=== PATIENT | male | born 1985 | race African-American/Black ===

== ENCOUNTER 2016-05-28 07:58 | Emergency (ER) | payer BC ==
[~2016-05-28] VITALS: Ht 185.4 cm; Wt 192.8 kg
[2016-05-28] MEDS ORDERED: ONDANSETRON PF 4 MG/2 ML VIAL. IV ONE ×3 (08:15→10:00)
[2016-05-28] MEDS ORDERED: KETOROLAC TROMETHAMINE 30 MG/ML SYRINGE. IV ONE (08:15)
[2016-05-28] MEDS ORDERED: LIDO:MAALOX:DONNATAL 1:1:1 15 ML SINGLE DOSE SWSW ONE (08:15)
[2016-05-28] MEDS ORDERED: IV NORMAL SALINE 1000ML BAG 1,000 ML IV ONE (08:15)
[2016-05-28 08:27] LABS: BILIRUBIN,URINE NEGATIVE (NEG); GLUCOSE,URINE NEGATIVE (NEG); NITRITE,URINE NEGATIVE (NEG); PH,URINE 5.5; PROTEIN,URINE NEGATIVE (NEG-TRACE); UROBILINOGEN,URINE 0.2 mg/dL (0.2 mg/dL)
--- NOTE | 2016-05-28 08:34 | PHYS DOC ---
Adult General Chief Complaint Chief Complaint: ABDOMINAL PAIN HPI HPI Patient is a 31 year old male who presents with abdominal pain. Patient reports three-day history of epigastric and right upper quadrant abdominal pain which is worse with eating. Reports several episodes of vomiting yesterday, feels nauseated today but no vomiting. Reports loose stools throughout the night last night. Denies fevers or chills, hematemesis, hematochezia or melena, dysuria or hematuria. Denies previous history of similar symptoms, denies exposure to sick contacts. No known past medical history, denies alcohol use, denies history of abdominal surgeries. PCP is Dr. Lawrence. Review of Systems Review of Systems Constitutional: Denies fever or chills HENT: Denies nasal congestion or sore throat Respiratory: Denies cough or shortness of breath Cardiovascular: Denies chest pain or edema GI: Reports abdominal pain, nausea, vomiting, & diarrhea, denies bloody stools : Denies dysuria or hematuria Musculoskeletal: Denies back pain or joint pain Integument: Denies rash or skin lesions Neurologic: Denies headache, focal weakness or sensory changes Current Medications Current Medications Current Medications Medications (Trade) Dose Ordered Sig/Héctor Start Time Stop Time Status Last Admin Dose Admin Ketorolac Tromethamine (Toradol) 30 mg 1X ONCE 05/28/16 08:15 05/28/16 08:24 DC 05/28/16 08:47 30 MG Multi-Ingredient Mouthwash/Gargle (Gi Cocktail Single Dose) 15 ml 1X ONCE 05/28/16 08:15 05/28/16 08:24 DC 05/28/16 09:27 15 ML Ondansetron HCl (Zofran) 4 mg 1X ONCE 05/28/16 08:30 05/28/16 08:43 DC 05/28/16 08:46 4 MG Sodium Chloride (Iv Sodium Chloride 0.9% 1000ml Bag) 1,000 ml @ 1,000 mls/hr 1X ONCE 05/28/16 08:15 05/28/16 09:14 DC 05/28/16 08:45 1,000 MLS/HR Allergies Allergies Allergies Coded Allergies Type Severity Reaction Last Updated Verified No Known Drug Allergies 05/28/16 No Physical Exam Physical Exam Constitutional: Morbidly obese, no acute distress, non-toxic appearance. HENT: Normocephalic, atraumatic, bilateral external ears normal, oropharynx moist, nose normal. Eyes: conjunctiva normal, no discharge. Neck: supple, no stridor. Cardiovascular: RRR, no murmurs, no edema. Lungs & Thorax: LCTAB, no wheezing, no respiratory distress. Abdomen: Normal bowel sounds, soft, right upper quadrant tenderness and epigastric tenderness without rebound or guarding, no masses or pulsatile masses nondistended. Skin: Warm, dry, no erythema, no rash. Back: No tenderness, no CVA tenderness. Extremities: No tenderness, no edema. Neurologic: Alert and oriented X 3, no focal deficits noted. Psychologic: Affect normal, judgement normal, mood normal. Current Patient Data Vital Signs Vital Signs Date Time Temp Pulse Resp B/P Pulse Ox O2 Delivery O2 Flow Rate FiO2 05/28/16 08:10 98.1 85 18 148/78 98 Room Air 98.1 Lab Values Laboratory Tests Test 05/28/16 08:10 05/28/16 08:35 Urine Collection Type Unknown Urine Color Yellow Urine Clarity Clear Urine pH 5.5 Urine Specific [place] 1.025 Urine Protein Negativemg/dL (NEG-TRACE) Urine Glucose (UA) Negativemg/dL (NEG) Urine Ketones (Stick) Negativemg/dL (NEG) Urine Blood Moderate (NEG) Urine Nitrite Negative (NEG) Urine Bilirubin Negative (NEG) Urine Urobilinogen Dipstick 0.2mg/dL (0.2 mg/dL) Urine Leukocyte Esterase Negative (NEG) Urine RBC 0/HPF (0-2) Urine WBC 0/HPF (0-4) Urine Bacteria 0/HPF (0-FEW) White Blood Count 6.9x10^3/uL (4.0-11.0) Red Blood Count 4.67x10^6/uL (4.30-5.70) Hemoglobin 14.3g/dL (13.0-17.5) Hematocrit 43.3% (39.0-53.0) Mean Corpuscular Volume 93fL (79-100) Mean Corpuscular Hemoglobin 31pg (25-35) Mean Corpuscular Hemoglobin Concent 33g/dL (31-37) Red Cell Distribution Width 13.2% (11.5-14.5) Platelet Count 213x10^3/uL (140-400) Neutrophils (%) (Auto) 74% (31-73) H Lymphocytes (%) (Auto) 14% (24-48) L Monocytes (%) (Auto) 8% (0-9) Eosinophils (%) (Auto) 3% (0-3) Basophils (%) (Auto) 0% (0-3) Neutrophils # (Auto) 5.1x10^3uL (1.8-7.7) Lymphocytes # (Auto) 1.0x10^3/uL (1.0-4.8) Monocytes # (Auto) 0.6x10^3/uL (0.0-1.1) Eosinophils # (Auto) 0.2x10^3/uL (0.0-0.7) Basophils # (Auto) 0.0x10^3/uL (0.0-0.2) Sodium Level 144mmol/L (136-145) Potassium Level 4.0mmol/L (3.5-5.1) Chloride Level 107mmol/L (98-107) Carbon Dioxide Level 30mmol/L (21-32) Anion Gap 7 (6-14) Blood Urea Nitrogen 13mg/dL (8-26) Creatinine 1.1mg/dL (0.7-1.3) Estimated GFR (Cockcroft-Gault) 77.6 BUN/Creatinine Ratio 12 (6-20) Glucose Level 111mg/dL (70-99) H Calcium Level 9.1mg/dL (8.5-10.1) Total Bilirubin 0.8mg/dL (0.2-1.0) Aspartate Amino Transferase (AST) 28U/L (15-37) Alanine Aminotransferase (ALT) 62U/L (16-63) Alkaline Phosphatase 82U/L (46-116) Total Protein 7.1g/dL (6.4-8.2) Albumin 3.7g/dL (3.4-5.0) Albumin/Globulin Ratio 1.1 (1.0-1.7) Lipase 115U/L (73-393) Laboratory Tests 05/28/16 08:35 Laboratory Tests 05/28/16 08:35 EKG EKG [] Radiology/Procedures Radiology/Procedures PROCEDURE: ABDOMEN LTD Right upper quadrant abdominal ultrasound, 05/28/2016: History: Right upper quadrant pain The gallbladder is within normal limits in size. There is no sonographic evidence of cholelithiasis. The gallbladder lowery are not thickened. No bile duct dilatation is seen. The visualized portions of the liver, pancreas and right kidney are unremarkable. IMPRESSION: No significant abnormality is detected. DICTATED and SIGNED BY: SAL TRUJILLO MD DATE: 05/28/16 0911[] Course & Med Decision Making Course & Med Decision Making Pertinent Labs and Imaging studies reviewed. (See chart for details) Patient presents with abdominal pain, vomiting, diarrhea. Well-appearing, stable vitals here. Labs show no acute abnormality, right upper quadrant ultrasound unremarkable. Able to tolerate oral intake. Feeling better after receiving IV fluids, Zofran, GI cocktail. Recommend rest, by mouth hydration, Zofran for nausea, antacid, follow up as needed with Dr. Lawrence in primary care clinic if not improving in 2-3 days. Return to the emergency department for high fever, severe pain, uncontrolled vomiting, bloody stools, any otherwise worsening condition. Discharged home in stable and improved condition. [] Dragon Disclaimer Dragon Disclaimer This electronic medical record was generated, in whole or in part, using a voice recognition dictation system. Departure Departure Impression: Primary Impression: Vomiting and diarrhea Additional Impression: Abdominal pain Referrals: DARCIE LAWRENCE MD (PCP) Patient Instructions: Diarrhea, Pfrw-wp-Rnii, Gastritis, Adult, Djrx-yn-Skon, Nausea and Vomiting, Mnio-fg-Erel Additional Instructions: You seen in the emergency department today for abdominal pain. Tests here did not show a serious cause of symptoms. This could because by a virus. Please rest , drink clear liquids to stay hydrated, take Zofran for nausea and antacid as needed, follow up as needed with Dr. Lawrence in primary care clinic if not improving in 2-3 days. Return to the emergency department for high fever, severe pain, uncontrolled vomiting, bloody stools, any otherwise worsening condition. Scripts Ranitidine Hcl (Zantac)150 Mg [id number] Mg PO DAILY #15 TAB Prov:ESTEBAN GE MD 05/28/16 Ondansetron (Zofran Odt)4 Mg Tab.rapdis1 Tab SL Q8HRS PRN NAUSEA #10 TAB Prov:ESTEBAN GE MD 05/28/16 Problem Qualifiers ESTEBAN GE MD May 28, 2016 08:34
[2016-05-28 08:38] LABS: BACTERIA,URINE 0 /HPF (0-FEW); RBC,URINE 0 /HPF (0-2); WBC,URINE 0 /HPF (0-4)
[2016-05-28 08:46] LABS: BASO % 0 % (0-3); EOS % 3 % (0-3); HEMATOCRIT 43.3 % (39.0-53.0); HEMOGLOBIN 14.3 g/dL (13.0-17.5); LYMPH % 14 % (24-48); MEAN CORPUSCULAR HEMOGLOBIN 31 pg (25-35); MEAN CORPUSCULAR HGB CONC 33 g/dL (31-37); MEAN CORPUSCULAR VOLUME 93 fL (79-100); MONO % 8 % (0-9); NEUT % 74 % (31-73); PLATELET COUNT 213 x10^3/uL (140-400); RED BLOOD COUNT 4.67 x10^6/uL (4.30-5.70); RED CELL DISTRIBUTION WIDTH 13.2 % (11.5-14.5); WHITE BLOOD COUNT 6.9 x10^3/uL (4.0-11.0)
[2016-05-28 08:58] LABS: CALCIUM 9.1 mg/dL (8.5-10.1); CREATININE 1.1 mg/dL (0.7-1.3); GFR 77.6
[2016-05-28 09:10] LABS: ALBUMIN 3.7 g/dL (3.4-5.0); ALBUMIN/GLOBULIN RATIO 1.1 (1.0-1.7); TOTAL BILIRUBIN 0.8 mg/dL (0.2-1.0); TOTAL PROTEIN 7.1 g/dL (6.4-8.2)
--- NOTE | 2016-05-28 09:15 | RAD ---
Right upper quadrant abdominal ultrasound, 05/28/2016: History: Right upper quadrant pain The gallbladder is within normal limits in size. There is no sonographic evidence of cholelithiasis. The gallbladder lowery are not thickened. No bile duct dilatation is seen. The visualized portions of the liver, pancreas and right kidney are unremarkable. IMPRESSION: No significant abnormality is detected.
[2016-05-28] MEDS ORDERED: ONDA4TAB10 SL (09:41)
[2016-05-28] MEDS ORDERED: RANI150T6 PO (09:41)
[2016-05-28 09:52] VITALS: BP 122/70
[2016-05-28] MEDS ORDERED: FENTANYL PF 100 MCG/2 ML VIAL. IV ONE ×2 (10:00)
== END 2016-05-28 09:59 | disposition home or self-care (01) ==
LOC: ER 07:58
DX: R10.13 Epigastric pain (principal); R19.7 Diarrhea, unspecified; R11.2 Nausea with vomiting, unspecified; R10.11 Right upper quadrant pain
CPT/HCPCS: 36415; 76705; 80053; 81001; 83690; 85027; 96361; 96374; 96375; 99285; J1885; J2405; J7030

== ENCOUNTER 2016-06-19 10:14 | Emergency (ER) | payer BC ==
[~2016-06-19 10:14] MED LIST: ONDA4TAB10 SL; RANI150T6 PO
[2016-06-19 10:19] VITALS: BP 167/88
[2016-06-19] MEDS ORDERED: AMOX500C PO (10:43)
[2016-06-19] MEDS ORDERED: PRED50TA PO (10:43)
--- NOTE | 2016-06-19 10:43 | PHYS DOC ---
Past Medical History Past Medical History: Hypertension Past Surgical History: No Surgical History Alcohol Use: Occasionally Drug Use: None Adult General Chief Complaint Chief Complaint: SORE THROAT HPI HPI 31-year-old male presenting to the emergency department today with a sore throat for greater than a week. He has a pain in the back of his throat that is throbbing pain that is worse with swallowing and without associated fever. He denies a cough. Onset greater than a week. Location throat. Duration constant. No alleviating factors present. Review of systems is negative for chest pain shortness of breath. He denies drooling or dyspnea or stridor. He denies tongue elevation. All other review of systems is negative unless otherwise noted in history of present illness. Review of Systems Review of Systems SEE ABOVE. Allergies Allergies Allergies Coded Allergies Type Severity Reaction Last Updated Verified No Known Drug Allergies 05/28/16 No Physical Exam Physical Exam Constitutional: Well developed, well nourished, no acute distress, non-toxic appearance. HENT: Normocephalic, atraumatic, bilateral external ears normal, oropharynx moist, no evidence of peritonsillar abscess. No swelling of the posterior pharynx. Normal range of motion of the neck. Uvula is midline. Erythema of the posterior pharynx and tonsils., nose normal. Eyes: PERRLA, EOMI, conjunctiva normal, no discharge. [] Neck: Normal range of motion, no tenderness, supple, no stridor. Cardiovascular:Heart rate regular rhythm, no murmur Lungs & Thorax: Bilateral breath sounds clear to auscultation Abdomen: Bowel sounds normal, soft, no tenderness, no masses, no pulsatile masses. Skin: Warm, dry, no erythema, no rash. Back: No tenderness, no CVA tenderness. [] Extremities: No tenderness, no cyanosis, no clubbing, ROM intact, no edema. Neurologic: Alert and oriented X 3, normal motor function, normal sensory function, no focal deficits noted. Psychologic: Affect normal, judgement normal, mood normal. [] Current Patient Data Vital Signs Vital Signs Date Time Temp Pulse Resp B/P Pulse Ox O2 Delivery O2 Flow Rate FiO2 06/19/16 10:19 98.6 101 20 99 Room Air 98.6 EKG EKG [] Radiology/Procedures Radiology/Procedures [] Course & Med Decision Making Course & Med Decision Making Pertinent Labs and Imaging studies reviewed. (See chart for details) [] 31-year-old gentleman presenting with sore throat found to be strep positive. Patient given amoxicillin and corticosteroids. I recommend acetaminophen and ibuprofen for pain control. Smhq-uy-pdid discharge instructions and return precautions given. Patient comfortable with plan. Dragon Disclaimer Dragon Disclaimer This electronic medical record was generated, in whole or in part, using a voice recognition dictation system. Departure Departure Impression: Primary Impression: Strep throat Disposition: HOME, SELF-CARE Condition: STABLE Referrals: DARCIE LAWRENCE MD (PCP) Patient Instructions: Strep Throat Additional Instructions: Thank you for allowing us to participate in your care today. Followup with your primary care physician in 3 days if your symptoms do not improve. If you do not have a primary care provider you can ask for a list of our primary care providers. Return to the emergency department you have any new or concerning findings. This should be evaluated by the primary care physician and any necessary consulting services for continued management within a few days after discharge. Return to emergency room if you have any new or concerning symptoms including but not limited to fever, chills, nausea, vomiting, intractable pain, any new rashes, chest pain, shortness of air, uncontrolled bleeding, difficulty breathing, and/or vision loss. Scripts Prednisone 50 Mg Tablet1 Tab PO DAILY #5 TAB Prov:MAURICIO LAZCANO MD 06/19/16 Amoxicillin 500 Mg Capsule1 Cap PO BID #20 CAP Prov:MAURICIO LAZCANO MD 06/19/16 MAURICIO LAZCANO MD Jun 19, 2016 10:43
[2016-06-19 13:36] LABS: NEGATIVE OBC STREP NEG; POSITIVE OBC STREP POS
== END 2016-06-19 10:55 | disposition home or self-care (01) ==
LOC: ER 10:14
DX: J02.0 Streptococcal pharyngitis (principal); I10 Essential (primary) hypertension
CPT/HCPCS: 87880; 99283

== ENCOUNTER 2017-01-26 06:57 | Emergency (ER) | payer BC ==
[~2017-01-26] VITALS: Ht 180.3 cm; Wt 145.1 kg
[~2017-01-26 06:57] MED LIST changes: +AMOX500C PO; +PRED50TA PO
[2017-01-26 07:05] VITALS: BP 143/93
--- NOTE | 2017-01-26 07:37 | PHYS DOC ---
Past Medical History Past Medical History: Hypertension Past Surgical History: No Surgical History Alcohol Use: Occasionally Drug Use: None Adult General Chief Complaint Chief Complaint: FOOT INJURY PAIN HPI HPI Patient is a 32 year old male with history of hypertension and overweight who presents today complaining of moderate right ankle and foot pain that began 3 days ago. Patient denies any known injury. He states his pain is constant worse on weight bearing. He states he stands on his feet for hours and this exacerbates his pain. Review of Systems Review of Systems Constitutional: Denies fever or chills [] Musculoskeletal: Right ankle and knee pain Integument: Denies rash or skin lesions [] Neurologic: Denies headache, focal weakness or sensory changes [] All other systems were reviewed and found to be within normal limits, except as documented in this note. Allergies Allergies Allergies Coded Allergies Type Severity Reaction Last Updated Verified No Known Drug Allergies 05/28/16 No Physical Exam Physical Exam Constitutional: Well developed, well nourished, no acute distress, non-toxic appearance. [] Skin: Warm, dry, no erythema, no rash. [] Back: No tenderness, no CVA tenderness. [] Extremities: Overweight patient with a BMI of 44.6. No obvious deformity noted on bilateral lower extremities. +1 bilateral lower extremity swelling probably chronic. No tenderness on exam of the right ankle right foot. Feet appear dry with Callous on the plantar aspect of the fee.Normal range of motion to bilateral feet and ankle. +2 bilateral pedal pulses. Cap Refill less than 2 seconds bilateral lower extremities. Neurologic: Alert and oriented X 3, normal motor function, normal sensory function, no focal deficits noted. [] Psychologic: Affect normal, judgement normal, mood normal. [] Current Patient Data Vital Signs Vital Signs Date Time Temp Pulse Resp B/P (MAP) Pulse Ox O2 Delivery O2 Flow Rate FiO2 01/26/17 07:05 97.9 81 18 143/93 (110) 99 Room Air 97.9 EKG EKG [] Radiology/Procedures Radiology/Procedures []PROCEDURE: ANKLE RIGHT 3V; FOOT RIGHT 3V Right foot, 3 views, 01/26/2017: History: Foot and ankle pain and swelling No fracture or dislocation is identified. No destructive bony lesion is seen. There is moderate generalized subcutaneous edema about the foot. Right ankle, 3 views, 01/26/2017: No fracture or dislocation is identified. There is diffuse soft tissue swelling about the ankle. IMPRESSION: No acute bony abnormality is detected. DICTATED and SIGNED BY: SAL TRUJILLO MD DATE: 01/26/17 0756 CC: DARCIE LAWRENCE MD; VICTOR HUGO BRUNO APRN ~ Course & Med Decision Making Course & Med Decision Making Pertinent Labs and Imaging studies reviewed. (See chart for details) Patient is in the ED with right ankle and right foot pain with no known injury for 3 days. Right ankle and foot x-rays interpreted by radiologist are negative for any acute findings. Patient is requesting a note for work which was provided. Patient was discharged with diclofenac cream instructed to ice and elevate the extremities. Weight loss will benefit this patient. Provided orthopedic doctor for follow-up. Dragon Disclaimer Dragon Disclaimer This electronic medical record was generated, in whole or in part, using a voice recognition dictation system. Departure Departure Impression: Primary Impression: Right foot pain Additional Impressions: Right ankle pain Lower extremity edema Disposition: 01 HOME, SELF-CARE Condition: STABLE Referrals: DARCIE LAWRENCE MD (PCP) ILIA DAVILA MD follow up in one week Patient Instructions: Ankle Pain, Edema Additional Instructions: You were seen with right ankle and foot pain. Your right ankle and foot x-rays were negative for any acute findings. Ice and elevate the extremities. Continue taking pzni-qle-ptqhrgm pain relievers. Use the prescribed cream as ordered. Follow-up with the provided orthopedic doctor in one week if pain continues. Scripts Diclofenac Sodium (VOLTAREN) 100 Gm Gel..gram. 1 GM TP QID, #100 GM 2 Refills Prov: VICTOR HUGO BRUNO APRN 01/26/17 Problem Qualifiers Additional Impressions: Right ankle pain Chronicity: acute Qualified Codes: M25.571 - Pain in right ankle and joints of right foot VICTOR HUGO BRNUO APRN Jan 26, 2017 07:37
--- NOTE | 2017-01-26 08:03 | RAD ---
Right foot, 3 views, 01/26/2017: History: Foot and ankle pain and swelling No fracture or dislocation is identified. No destructive bony lesion is seen. There is moderate generalized subcutaneous edema about the foot. Right ankle, 3 views, 01/26/2017: No fracture or dislocation is identified. There is diffuse soft tissue swelling about the ankle. IMPRESSION: No acute bony abnormality is detected.
[2017-01-26] MEDS ORDERED: DICL100G18 TP (08:30)
== END 2017-01-26 08:44 | disposition home or self-care (01) ==
LOC: ER 06:57
DX: M25.571 Pain in right ankle and joints of right foot (principal); M79.671 Pain in right foot; R60.0 Localized edema; I10 Essential (primary) hypertension
CPT/HCPCS: 73610; 73630; 99284

== ENCOUNTER 2017-01-28 20:34 | Emergency (ER) | payer BC ==
[~2017-01-28 20:34] MED LIST changes: +DICL100G18 TP
== END 2017-01-28 20:59 | disposition left against medical advice (07) ==
LOC: ER 20:34
DX: M79.673 Pain in unspecified foot (principal); Z53.21 Procedure and treatment not carried out due to patient leaving prior to being seen by health care provider

== ENCOUNTER → 2017-02-11 | Outpatient (CLI) | payer BC ==
[2017-01-26 07:05] VITALS: BP 143/93
--- NOTE | 2017-02-11 13:21 | CARD ---
APPROVED REPORT EXAM: Two-dimensional and M-mode echocardiogram with Doppler and color Doppler. Other Information Quality : Good INDICATION Murmur DX SYSTOLIC EJECTION MURMUR 2D DIMENSIONS Left Atrium(2D)4.1 (1.6-4.0cm)IVSd1.4 (0.7-1.1cm) Aortic Root(2D)3.1 (2.0-3.7cm)LVDd5.3 (3.9-5.9cm) LVOT Diameter2.0 (1.8-2.4cm)PWd1.4 (0.7-1.1cm) LVDs3.1 (2.5-4.0cm)FS (%) 41.9 % SV96.2 mlLVEF(%)72.5 (>50%) Aortic Valve AoV Peak Matthew.135.1cm/sAoV VTI25.6cm AO Peak GR.7.3mmHgLVOT Peak Matthew.135.3cm/s AO Mean GR.4mmHgAVA (VMAX)3.24cm2 KARL (VTI)3.50cm2 Mitral Valve MV E Umyhunkl01.2cm/sMV DECEL HPCR306dy MV A Aosnuszs38.3cm/sE/A Ratio1.3 Tricuspid Valve TR P. Zzlxjrcb100au/sRAP VGXCMARW6mfHl TR Peak Gr.24arKpTMMQ91wcOh LEFT VENTRICLE The left ventricle is normal size. There is mild concentric left ventricular hypertrophy. Left ventri mora systolic function is normal. The Ejection Fraction is 55-60%. There is normal LV segmental wall m otion. The left ventricular diastolic function and filling is normal for age. RIGHT VENTRICLE The right ventricle is normal size. The right ventricular systolic function is normal. ATRIA The left atrium size is normal. The right atrium size is normal. The interatrial septum is intact wit h no evidence for an atrial septal defect or patent foramen ovale as noted on 2-D or Doppler imaging. AORTIC VALVE The aortic valve is grossly normal in structure and function. Doppler and Color Flow revealed no sign ificant aortic regurgitation. There is no significant aortic valvular stenosis. MITRAL VALVE The mitral valve is normal in structure and function. There is no evidence of mitral valve prolapse. There is no mitral valve stenosis. Doppler and Color Flow revealed no mitral valve regurgitation note d. TRICUSPID VALVE The tricuspid valve is normal in structure and function. Doppler and Color Flow revealed trace tricus pid regurgitation. There is no pulmonary hypertension. The PA pressure was estimated at 15 mmHg. Ther e is no tricuspid valve prolapse or vegetation. There is no tricuspid valve stenosis. PULMONIC VALVE Doppler and Color Flow revealed no pulmonic valvular regurgitation. There is no pulmonic valvular carter nosis. GREAT VESSELS The aortic root is normal in size. The ascending aorta is normal in size. The IVC is normal in size a nd collapses >50% with inspiration. PERICARDIAL EFFUSION There is no pleural effusion. There is no evidence of significant pericardial effusion. Critical Notification Critical Value: No <Conclusion> There is mild concentric left ventricular hypertrophy. Left ventricle systolic function is normal. The Ejection Fraction is 55-60%. There is normal LV segmental wall motion. No significant valvular disease.
== END | disposition home or self-care (01) ==
LOC: ECHO 07:48
PROVIDERS: ATTEND Internal Medicine Cardiovascular Disease
DX: I51.7 Cardiomegaly (principal); R01.1 Cardiac murmur, unspecified
CPT/HCPCS: 93306

== ENCOUNTER 2017-04-02 14:11 | Emergency (ER) | payer BC | END 2017-04-02 16:18 | disposition home or self-care (01) | LOC: ER 14:11 | DX: M94.0 Chondrocostal junction syndrome [Tietze] (principal); R19.7 Diarrhea, unspecified; R51 Headache; E66.9 Obesity, unspecified; I10 Essential (primary) hypertension; F17.200 Nicotine dependence, unspecified, uncomplicated; Z68.43 Body mass index [BMI] 50.0-59.9, adult | CPT/HCPCS: 71046; 93005; 99284-25 ==

== ENCOUNTER → 2017-08-11 | Outpatient (CLI) | payer BC | END | disposition home or self-care (01) | LOC: US 12:53 | DX: R60.0 Localized edema (principal) | CPT/HCPCS: 93971 ==

== ENCOUNTER 2019-01-06 00:09 | Emergency (ER) | payer BC ==
[~2019-01-06] VITALS: Ht 180.3 cm; Wt 176.9 kg
[~2019-01-06 00:09] MED LIST changes: +NABU750T PO; +RANI-376 PO; -RANI150T6 PO
[2019-01-06] MEDS ORDERED: NYST100054 PO (00:16)
--- NOTE | 2019-01-06 00:16 | PHYS DOC ---
Past Medical History Past Medical History: Hypertension (SHYAM JACK APRN) Past Surgical History: No Surgical History (SHYAM JACK APRN) Alcohol Use: Occasionally Drug Use: None (SHYAM JACK APRN) Attending Signature I have participated in the care of this patient and I have reviewed and agree with all pertinent clinical information above including history, exam, and recommendations. (JAIR THORPE MD) Adult General Chief Complaint Chief Complaint: TONGUE SWELLING/INJURY HPI HPI Patient is a 33 year old male who presents with states he's been on Bactrim antibiotic for a abscess infection. Patient states he's now noticed white p atches on his tongue and his tongue is sore and redness of his inner lips and in the mucosa of his mouth that are sore. (SHYAM JACK APRN) Review of Systems Review of Systems Constitutional: Denies fever or chills [] Eyes: Denies change in visual acuity, redness, or eye pain [] HENT: Denies nasal congestion or sore throat [] Respiratory: Denies cough or shortness of breath [] Cardiovascular: No additional information not addressed in HPI [] GI: Denies abdominal pain, nausea, vomiting, bloody stools or diarrhea [] : Denies dysuria or hematuria [] Musculoskeletal: Denies back pain or joint pain [] Integument: Denies rash or skin lesions [] Neurologic: Denies headache, focal weakness or sensory changes [] Endocrine: Denies polyuria or polydipsia [] All other systems were reviewed and found to be within normal limits, except as documented in this note. (SHYAM JACK APRN) Allergies Allergies Allergies Coded Allergies Type Severity Reaction Last Updated Verified No Known Drug Allergies 05/28/16 No (JAIR THORPE MD) Physical Exam Physical Exam Constitutional: Well developed, well nourished, no acute distress, non-toxic appearance. [] HENT: Normocephalic, atraumatic, bilateral external ears normal, oropharynx moist, no oral exudates, nose normal. [] Eyes: PERRLA, EOMI, conjunctiva normal, no discharge. [] Neck: Normal range of motion, no tenderness, supple, no stridor. [] Cardiovascular:Heart rate regular rhythm, no murmur [] Lungs & Thorax: Bilateral breath sounds clear to auscultation [] Abdomen: Bowel sounds normal, soft, no tenderness, no masses, no pulsatile masses. [] Skin: Warm, dry, no erythema, no rash. [] Back: No tenderness, no CVA tenderness. [] Extremities: No tenderness, no cyanosis, no clubbing, ROM intact, no edema. [] Neurologic: Alert and oriented X 3, normal motor function, normal sensory function, no focal deficits noted. [] Psychologic: Affect normal, judgement normal, mood normal. [] (SHYAM JACK APRN) Current Patient Data Vital Signs Vital Signs Date Time Temp Pulse Resp B/P (MAP) Pulse Ox O2 Delivery O2 Flow Rate FiO2 01/06/19 00:18 98.2 95 20 147/103 (118) 99 Room Air 98.2 (JAIR THORPE MD) EKG EKG [] (SHYAM JACK APRN) Radiology/Procedures Radiology/Procedures [] (SHYAM JACK APRN) Course & Med Decision Making Course & Med Decision Making Patient has white patches on his tongue and white patches to the inner mucosa of his mouth on his cheeks and then her bottom lip with redness. Patient states these areas are also sore. Patient noticed this after he is taking the Bactrim antibiotic. This is likely oral yeast. Patient is told to follow-up with his primary care doctor. Patient is given Oral nystatin. [] (SHYAM JACK APRN) Dragon Disclaimer Dragon Disclaimer This electronic medical record was generated, in whole or in part, using a voice recognition dictation system. (SHYAM JACK APRN) Departure Departure Impression: Primary Impression: Thrush, oral Disposition: HOME, SELF-CARE Condition: STABLE Referrals: Marly DEVINE MD (PCP) Patient Instructions: Thrush, Adult Additional Instructions: Follow up with primary care provider. Swish the medication around in your mouth for as long as possible and then swallow. Use medication as directed. Scripts Nystatin (NYSTATIN) 100,000 Unit/1 Ml Oral.susp 5 ML PO QID for 10 Days, #200 ML Prov: SHYAM JACK APRN 01/06/19 SHYAM JACK APRN Jan 06, 2019 00:16 JAIR THORPE MD Jan 06, 2019 05:31
[2019-01-06 00:18] VITALS: BP 147/103
== END 2019-01-06 00:34 | disposition home or self-care (01) ==
LOC: ER 00:09
DX: B37.0 Candidal stomatitis (principal); I10 Essential (primary) hypertension
CPT/HCPCS: 99283

== ENCOUNTER 2019-01-07 20:10 | Emergency (ER) | payer BC ==
[~2019-01-07] VITALS: Ht 188 cm; Wt 176.9 kg
[~2019-01-07 20:10] MED LIST changes: +NYST100054 PO
[2019-01-07 21:00] VITALS: BP 147/89
--- NOTE | 2019-01-07 21:01 | PHYS DOC ---
Past Medical History Past Medical History: Hypertension Additional Past Medical Histor: CYSTITIS Past Surgical History: No Surgical History Alcohol Use: Occasionally Drug Use: None Adult General Chief Complaint Chief Complaint: SEXUALLY TRANSMITTED DISEASE HPI HPI Patient is a 33 year old -Martiniquais male, who presents to the emergency Department with concerns of sexually transmitted infection. Patient states he was seen here yesterday and diagnosed with thrush of his mouth. Today he noticed a small sore located at 12:00 on the head of his penis. He denies any pain or discharge from the sore. He just noticed that the area appeared a little red and he was worried that he may have contracted a sexually transmitted infection. Patient denies any abdominal pain, pelvic pain, dysuria, hematuria, irregular penile discharge, low back pain, dysuria, or increased urinary frequency. She currently denies any pain. He states that he has been taking the medication as prescribed for his oral thrush. All other ROS is neg unless otherwise noted in HPI. Review of Systems Review of Systems See Above Allergies Allergies Allergies Coded Allergies Type Severity Reaction Last Updated Verified No Known Drug Allergies 05/28/16 No Physical Exam Physical Exam See Above Constitutional: Well developed, well nourished, no acute distress, non-toxic appearance, obese [] HENT: Normocephalic, atraumatic, bilateral external ears normal, oropharynx moist, thick white coating to tongue consistent with oral thrush noted, nose normal. [] Eyes: PERRLA, EOMI, conjunctiva normal, no discharge. [] Neck: Normal range of motion, no stridor. [] Cardiovascular:Heart rate regular rhythm Lungs & Thorax: Respirations even and unlabored, no retractions, no respiratory distress : Less than 2 mm area of irritation noted to the head of penis located at 12:00, does not appear to be a ulceration, most likely an abrasion, no surrounding erythema, no drainage Alexis RN was at beside to supervisor gate services genital exam Skin: Warm, dry, no erythema Neurologic: Alert and oriented X 3, no focal deficits noted. [] Psychologic: Affect normal, judgement normal, mood normal. [] Current Patient Data Vital Signs Vital Signs Date Time Temp Pulse Resp B/P (MAP) Pulse Ox O2 Delivery O2 Flow Rate FiO2 01/07/19 21:00 97.0 88 20 147/89 (108) 95 Room Air 97.0 EKG EKG [] Radiology/Procedures Radiology/Procedures [] Course & Med Decision Making Course & Med Decision Making Pertinent Labs and Imaging studies reviewed. (See chart for details) dx: Penile abrasion, oral thrush Patient is a 33-year-old -Martiniquais male who presented to the emergency room with concerns of having genital herpes after recent diagnosis of oral thrush. Patient states he was here yesterday and diagnosed with oral thrush. Patient states today he noticed that there was a small red area noted to the tip of his penis. Patient denied any pain or discharge at the site. However, he reports concern that maybe he has a sexually transmitted infection. Patient denied any symptoms concerning for sexually transmitted infection. Advised patient that we do not test for herpes in the emergency department and recomme nded that patient follow up with his primary care doctor or the local health department for comprehensive sexually transmitted infection testing. Encourage the patient to continue taking the oral nystatin as prescribed and to follow-up with Dr. Devine for further evaluation. Patient verbalized an understanding of home care, medications, follow-up, and return to ED instructions and was in agreement with the plan of care.[] Dragon Disclaimer Dragon Disclaimer This electronic medical record was generated, in whole or in part, using a voice recognition dictation system. Departure Departure Impression: Primary Impression: Penile abrasion Additional Impression: Thrush, oral Disposition: 01 HOME, SELF-CARE Condition: STABLE Referrals: Marly DEVINE MD (PCP) Patient Instructions: Abrasions, Thrush, Adult, [id number] Additional Instructions: Continue taking the medication as prescribed for treatment of your oral thrush. Follow-up with Dr. Devine for further more comprehensive sexually transmitted disease testing. Return to the ER if your symptoms worsen. Problem Qualifiers Primary Impression: Penile abrasion Encounter type: initial encounter Qualified Codes: S30.812A - Abrasion of penis, initial encounter ERLINDA VILLARREAL PROFESSOR OF [employer] Jan 07, 2019 21:01
== END 2019-01-07 21:10 | disposition home or self-care (01) ==
LOC: ER 20:10
DX: S30.812A Abrasion of penis, initial encounter (principal); B37.0 Candidal stomatitis; I10 Essential (primary) hypertension; Z72.89 Other problems related to lifestyle; X58.XXXA Exposure to other specified factors, initial encounter; Y93.89 Activity, other specified; Y92.89 Other specified places as the place of occurrence of the external cause; Y99.8 Other external cause status
CPT/HCPCS: 99281

== ENCOUNTER 2020-02-13 12:02 | Emergency (ER) | payer BC ==
[~2020-02-13] VITALS: Ht 182.9 cm; Wt 179.0 kg
[~2020-02-13 12:02] MED LIST changes: -DICL100G18 TP; +DICL100G54 TP; -NABU750T PO; +NABU750T7 PO
[2020-02-13] MEDS ORDERED: FAMOTIDINE 20 MG/2 ML VIAL IVP ONE (14:00)
[2020-02-13] MEDS ORDERED: IV NORMAL SALINE 1000ML BAG 1,000 ML IV ONE (14:00)
--- NOTE | 2020-02-13 14:37 | RAD ---
EXAM: Abdomen sonogram. HISTORY: Pain. TECHNIQUE: Sonographic imaging of the abdomen was performed. COMPARISON: None. FINDINGS: The liver is enlarged. There is hepatic steatosis. The gallbladder is contracted due to the postprandial status the patient. There is no convincing cholecystitis. The right kidney, pancreas, a citlali and inferior vena cava are unremarkable. The distal aorta is obscured due to body habitus. IMPRESSION: 1. Hepatomegaly and hepatic steatosis. 2. Contracted postprandial gallbladder, limiting evaluation. Electronically signed by: Princess Casiano MD (02/13/2020 2:35 PM) [id number]
[2020-02-13 15:33] LABS: BASO % 0 % (0-3); EOS # 0.1 x10^3/uL (0.0-0.7); EOS % 1 % (0-3); HEMOGLOBIN 14.8 g/dL (13.0-17.5); LYMPH # 1.9 x10^3/uL (1.0-4.8); LYMPH % 28 % (24-48); MEAN CORPUSCULAR HEMOGLOBIN 31 pg (25-35); MEAN CORPUSCULAR HGB CONC 34 g/dL (31-37); MEAN CORPUSCULAR VOLUME 91 fL (79-100); MONO # 0.5 x10^3/uL (0.0-1.1); MONO % 7 % (0-9); NEUT # 4.5 x10^3/uL (1.8-7.7); NEUT % 65 % (31-73); PLATELET COUNT 235 x10^3/uL (140-400); RED BLOOD COUNT 4.81 x10^6/uL (4.30-5.70); RED CELL DISTRIBUTION WIDTH 12.8 % (11.5-14.5); WHITE BLOOD COUNT 7.1 x10^3/uL (4.0-11.0)
[2020-02-13 15:39] LABS: BILIRUBIN,URINE NEGATIVE (NEG); CLARITY,URINE CLEAR; COLOR,URINE AMBER; NITRITE,URINE NEGATIVE (NEG); PROTEIN,URINE 100 mg/dL (NEG-TRACE); UROBILINOGEN,URINE 0.2 mg/dL (0.2 mg/dL)
[2020-02-13 15:42] LABS: CALCIUM 9.2 mg/dL (8.5-10.1); CREATININE 1.1 mg/dL (0.7-1.3); GFR 91.6; POTASSIUM 4.2 mmol/L (3.5-5.1)
[2020-02-13 15:46] LABS: ALBUMIN/GLOBULIN RATIO 1.2 (1.0-1.7); BARBITURATES NEG (NEG); BENZODIAZEPINES NEG (NEG); CANNABINOIDS NEG (NEG); COCAINE NEG (NEG); MAGNESIUM 2.5 mg/dL (1.8-2.4); METHADONE NEG (NEG); OPIATES NEG (NEG); PHENCYCLIDINE NEG (NEG); TOTAL BILIRUBIN 0.6 mg/dL (0.2-1.0); TOTAL PROTEIN 7.3 g/dL (6.4-8.2)
[2020-02-13 15:49] LABS: AMPHETAMINE/METHAMPHETAMINE NEG (NEG)
[2020-02-13 15:54] LABS: BACTERIA,URINE 0 /HPF (0-FEW); RBC,URINE RARE /HPF (0-2); SPERM,URINE PRESENT /HPF; WBC,URINE 0 /HPF (0-4)
--- NOTE | 2020-02-13 16:49 | PHYS DOC ---
Past Medical History Past Medical History: Hypertension Additional Past Medical Histor: CYSTITIS (VICTOR HUGO BRUNO APRN) Past Surgical History: No Surgical History, Other Additional Past Surgical Histo: right carpal tunnel (VICTOR HUGO BRUNO APRN) Smoking Status: Current Every Day Smoker Alcohol Use: Occasionally Drug Use: None (VICTOR HUGO BRUNO APRN) General Adult EDM: Chief Complaint: ABDOMINAL PAIN HPI: HPI: Patient is a 35 year old male with history of hypertension presenting today complaining of mild intermittent cramping bilateral upper abdominal pain with diarrhea that began 3 days ago. Patient denies any nausea vomiting. Denies anything specifically exacerbating or relieving his symptoms. He states he was tested for COVID-19 2 weeks ago and was negative. Patient states he works for [employer] and needs a note for work. (VICTOR HUGO BRUNO APRN) Review of Systems: Review of Systems: Constitutional: Denies fever or chills. [] Eyes: Denies change in visual acuity. [] HENT: Denies nasal congestion or sore throat. [] Respiratory: Denies cough or shortness of breath. [] Cardiovascular: Denies chest pain or edema. [] GI: Reports upper abdominal pain with diarrhea, denies any nausea vomiting : Denies dysuria. [] Musculoskeletal: Denies back pain or joint pain. [] Integument: Denies rash. [] Neurologic: Denies headache, focal weakness or sensory changes. [] Psychiatric: Denies depression or anxiety. [] (VICTOR HUGO BRUNO APRN) Heart Score: Risk Factors: Risk Factors: DM, Current or recent (<one month) smoker, HTN, HLP, family history of CAD, obesity. Risk Scores: Score 0 - 3: 2.5% MACE over next 6 weeks - Discharge Home Score 4 - 6: 20.3% MACE over next 6 weeks - Admit for Clinical Observation Score 7 - 10: 72.7% MACE over next 6 weeks - Early Invasive Strategies (VICTOR HUGO BRUNO APRN) Current Medications: Current Medications Medications (Trade) Dose Ordered Sig/Héctor Start Time Stop Time Status Last Admin Dose Admin Famotidine (Pepcid Vial) 20 mg 1X ONCE 02/13/20 14:00 02/13/20 14:02 DC 02/13/20 15:11 20 MG Sodium Chloride 1,000 ml @ 1,000 mls/hr 1X ONCE 02/13/20 14:00 02/13/20 14:59 DC 02/13/20 14:00 1,000 MLS/HR (VICTOR HUGO BRUNO APRN) Allergies: Allergies: Allergies Coded Allergies Type Severity Reaction Last Updated Verified No Known Drug Allergies 05/28/16 No (VICTOR HUGO BRUNO APRN) Physical Exam: PE: Constitutional: Well developed, well nourished, no acute distress, non-toxic appearance. [] HENT: Normocephalic, atraumatic, bilateral external ears normal, oropharynx moist, no oral exudates, nose normal. [] Eyes: PERRLA, EOMI, conjunctiva normal, no discharge. [] Neck: Normal range of motion, no tenderness, supple, no stridor. [] Cardiovascular:Heart rate regular rhythm, no murmur [] Lungs & Thorax: Bilateral breath sounds clear to auscultation [] Abdomen: Bowel sounds normal, soft, no tenderness, no masses, no pulsatile masses. [] Skin: Warm, dry, no erythema, no rash. [] Back: No tenderness, no CVA tenderness. [] Extremities: No tenderness, no cyanosis, no clubbing, ROM intact, no edema. [] Neurologic: Alert and oriented X 3, normal motor function, normal sensory function, no focal deficits noted. [] Psychologic: Affect normal, judgement normal, mood normal. [] (VICTOR HUGO BRUNO APRN) Current Patient Data: Labs: Laboratory Tests Test 02/13/20 15:00 White Blood Count 7.1 x10^3/uL (4.0-11.0) Red Blood Count 4.81 x10^6/uL (4.30-5.70) Hemoglobin 14.8 g/dL (13.0-17.5) Hematocrit 44.0 % (39.0-53.0) Mean Corpuscular Volume 91 fL (79-100) Mean Corpuscular Hemoglobin 31 pg (25-35) Mean Corpuscular Hemoglobin Concent 34 g/dL (31-37) Red Cell Distribution Width 12.8 % (11.5-14.5) Platelet Count 235 x10^3/uL (140-400) Neutrophils (%) (Auto) 65 % (31-73) Lymphocytes (%) (Auto) 28 % (24-48) Monocytes (%) (Auto) 7 % (0-9) Eosinophils (%) (Auto) 1 % (0-3) Basophils (%) (Auto) 0 % (0-3) Neutrophils # (Auto) 4.5 x10^3/uL (1.8-7.7) Lymphocytes # (Auto) 1.9 x10^3/uL (1.0-4.8) Monocytes # (Auto) 0.5 x10^3/uL (0.0-1.1) Eosinophils # (Auto) 0.1 x10^3/uL (0.0-0.7) Basophils # (Auto) 0.0 x10^3/uL (0.0-0.2) Urine Collection Type Unknown Urine Color Polina Urine Clarity Clear Urine pH 7.0 (<5.0-8.0) Urine Specific [place] 1.025 (1.000-1.030) Urine Protein 100 mg/dL (NEG-TRACE) Urine Glucose (UA) Negative mg/dL (NEG) Urine Ketones (Stick) Negative mg/dL (NEG) Urine Blood Small (NEG) Urine Nitrite Negative (NEG) Urine Bilirubin Negative (NEG) Urine Urobilinogen Dipstick 0.2 mg/dL (0.2 mg/dL) Urine Leukocyte Esterase Negative (NEG) Urine RBC Rare /HPF (0-2) Urine WBC 0 /HPF (0-4) Urine Squamous Epithelial Cells None /LPF Urine Bacteria 0 /HPF (0-FEW) Urine Mucus Slight /LPF Urine Sperm Present /HPF Sodium Level 145 mmol/L (136-145) Potassium Level 4.2 mmol/L (3.5-5.1) Chloride Level 108 mmol/L (98-107) H Carbon Dioxide Level 30 mmol/L (21-32) Anion Gap 7 (6-14) Blood Urea Nitrogen 11 mg/dL (8-26) Creatinine 1.1 mg/dL (0.7-1.3) Estimated GFR (Cockcroft-Gault) 91.6 BUN/Creatinine Ratio 10 (6-20) Glucose Level 92 mg/dL (70-99) Calcium Level 9.2 mg/dL (8.5-10.1) Magnesium Level 2.5 mg/dL (1.8-2.4) H Total Bilirubin 0.6 mg/dL (0.2-1.0) Aspartate Amino Transferase (AST) 23 U/L (15-37) Alanine Aminotransferase (ALT) 51 U/L (16-63) Alkaline Phosphatase 80 U/L (46-116) Total Protein 7.3 g/dL (6.4-8.2) Albumin 4.0 g/dL (3.4-5.0) Albumin/Globulin Ratio 1.2 (1.0-1.7) Lipase 104 U/L (73-393) Urine Opiates Screen Neg (NEG) Urine Methadone Screen Neg (NEG) Urine Barbiturates Neg (NEG) Urine Phencyclidine Screen Neg (NEG) Urine Amphetamine/Methamphetamine Neg (NEG) Urine Benzodiazepines Screen Neg (NEG) Urine Cocaine Screen Neg (NEG) Urine Cannabinoids Screen Neg (NEG) Ethyl Alcohol Level < 10 mg/dL (0-10) Urine Ethyl Alcohol Neg (NEG) Laboratory Tests 02/13/20 15:00 Laboratory Tests 02/13/20 15:00 Vital Signs: Vital Signs Date Time Temp Pulse Resp B/P (MAP) Pulse Ox O2 Delivery O2 Flow Rate FiO2 02/13/20 13:40 98.4 78 16 154/91 (112) 99 Room Air 98.4 (VICTOR HUGO BRUNO APRN) EKG: EKG: [] (VICTOR HUGO BRUNO APRN) Radiology/Procedures: Radiology/Procedures: []PROCEDURE: ABDOMEN LTD EXAM: Abdomen sonogram. HISTORY: Pain. TECHNIQUE: Sonographic imaging of the abdomen was performed. COMPARISON: None. FINDINGS: The liver is enlarged. There is hepatic steatosis. The gallbladder is contracted due to the postprandial status the patient. There is no convincing cholecystitis. The right kidney, pancreas, aorta and inferior vena cava are unremarkable. The distal aorta is obscured due to body habitus. IMPRESSION: 1. Hepatomegaly and hepatic steatosis. 2. Contracted postprandial gallbladder, limiting evaluation. Electronically signed by: Princess Akhtar MD (02/13/2020 2:35 PM) [id number] DICTATED and SIGNED BY: PRINCESS AKHTAR MD DATE: 02/13/20 [id number] (VICTOR HUGO BRUNO APRN) Course & Med Decision Making: Course & Med Decision Making Pertinent Labs and Imaging studies reviewed. (See chart for details) This is a 35-year-old male patient presented to the ED today with bilateral upp er abdominal pain and diarrhea for 3 days. CBC, CMP with no acute findings. Limited upper abdomen ultrasound is negative for any acute findings. Patient was tested for COVID-19. Provided note for work. Discharge to home. (VICTOR HUGO BRUNO APRN) Dragon Disclaimer: Dragon Disclaimer: This electronic medical record was generated, in whole or in part, using a voice recognition dictation system. (VICTOR HUGO BRUNO APRN) Departure Departure Impression: Primary Impression: Abdominal pain Qualified Codes: R10.10 - Upper abdominal pain, unspecified Additional Impressions: Diarrhea Qualified Codes: R19.7 - Diarrhea, unspecified Person under investigation for COVID-19 Disposition: 01 DC HOME SELF CARE/HOMELESS Condition: STABLE Referrals: Marly DEVINE MD (PCP) followup in 1-2 weeks Patient Instructions: Abdominal Pain, Diarrhea, [id number] Additional Instructions: You were tested for COVID-19. We will call you in the next 3 days with results. Quarantine yourself until you hear from us. Maintain good and hygiene. Follow-up with your doctor in 1 week Attending Signature Attending Signature I have reviewed the PA/ROUTE SALESMAN [employer]IVER's note and plan of care. I was available for consultation as needed during the patient's visit in the emergency department. I agree with the clinical impression, plan, and disposition. (KENDALL HARO DO) VICTOR HUGO BRUNO APRN Feb 13, 2020 16:49 KENDALL HARO DO Feb 13, 2020 18:56
[2020-02-13 17:00] VITALS: BP 135/82
== END 2020-02-13 17:47 | disposition home or self-care (01) ==
LOC: ER 12:02
DX: R10.11 Right upper quadrant pain (principal); R19.7 Diarrhea, unspecified; Z20.828 Contact with and (suspected) exposure to other viral communicable diseases; R10.12 Left upper quadrant pain; K76.0 Fatty (change of) liver, not elsewhere classified; R16.0 Hepatomegaly, not elsewhere classified; I10 Essential (primary) hypertension; F17.200 Nicotine dependence, unspecified, uncomplicated
CPT/HCPCS: 36415; 76705; 80053; 80307; 81001; 83690; 83735; 85025; 96361; 96374; 99285; C9803; G0480; J3490; J7030; U0003

== ENCOUNTER 2020-03-23 11:23 | Emergency (ER) | payer BC ==
[~2020-03-23] VITALS: Ht 185.4 cm; Wt 138.6 kg
[2020-03-23] MEDS ORDERED: ONDANSETRON ODT 4 MG TAB.RAPDIS. PO ONE (12:00)
[2020-03-23 12:05] VITALS: BP 165/95
--- NOTE | 2020-03-23 13:41 | PHYS DOC ---
Past Medical History Past Medical History: Hypertension Additional Past Medical Histor: CYSTITIS Past Surgical History: No Surgical History, Other Additional Past Surgical Histo: right carpal tunnel Smoking Status: Current Every Day Smoker Alcohol Use: Occasionally Drug Use: None General Adult EDM: Chief Complaint: NAUSEA/VOMITING/DIARRHA HPI: HPI: Patient is a 35 year old male who presented to ER for evaluation headache and vomiting. Patient works at [employer]. Patient took a lunch break, he went home to eat. After eating he feels chill, headache and then vomited several times, did not feel well so he came here for evaluation. Patient denies any nausea. Patient denies any cough or fever. Patient denies any abdominal pain. Patient denies any chest pain or any trouble breathing. Review of Systems: Review of Systems: Constitutional: Denies fever or chills. [] Eyes: Denies change in visual acuity. [] HENT: Denies nasal congestion or sore throat. [] Respiratory: Denies cough or shortness of breath. [] Cardiovascular: Denies chest pain or edema. [] GI: Positive for vomiting, no abdominal pain, no nausea. : Denies dysuria. [] Musculoskeletal: Denies back pain or joint pain. [] Integument: Denies rash. [] Neurologic: Positive for headache, no focal weakness or numbness. No neck pain, no neck stiffness.] Endocrine: Denies polyuria or polydipsia. [] Lymphatic: Denies swollen glands. [] Psychiatric: Denies depression or anxiety. [] Heart Score: Risk Factors: Risk Factors: DM, Current or recent (<one month) smoker, HTN, HLP, family history of CAD, obesity. Risk Scores: Score 0 - 3: 2.5% MACE over next 6 weeks - Discharge Home Score 4 - 6: 20.3% MACE over next 6 weeks - Admit for Clinical Observation Score 7 - 10: 72.7% MACE over next 6 weeks - Early Invasive Strategies Current Medications: Current Medications Medications (Trade) Dose Ordered Sig/Héctor Start Time Stop Time Status Last Admin Dose Admin Ondansetron HCl (Zofran Odt) 8 mg 1X ONCE 03/23/20 12:00 03/23/20 12:01 DC 03/23/20 12:18 8 MG Allergies: Allergies: Allergies Coded Allergies Type Severity Reaction Last Updated Verified Sulfa (Sulfonamide Antibiotics) Allergy Unknown 03/23/20 Yes Physical Exam: PE: Constitutional: Well developed, well nourished, no acute distress, non-toxic appearance. [] HENT: Normocephalic, atraumatic, bilateral external ears normal, oropharynx moist, no oral exudates, nose normal. [] Eyes: PERRLA, EOMI, conjunctiva normal, no discharge. [] Neck: Normal range of motion, no tenderness, supple, no stridor. [] Cardiovascular:Heart rate regular rhythm, no murmur [] Lungs & Thorax: Bilateral breath sounds clear to auscultation [] Abdomen: Bowel sounds normal, soft, no tenderness, no masses, no pulsatile masses. [] Skin: Warm, dry, no erythema, no rash. [] Back: No tenderness, no CVA tenderness. [] Extremities: No tenderness, no cyanosis, no clubbing, ROM intact, no edema. [] Neurologic: Alert and oriented X 3, normal motor function, normal sensory function, no focal deficits noted. [] Psychologic: Affect normal, judgement normal, mood normal. [] Current Patient Data: Vital Signs: Vital Signs Date Time Temp Pulse Resp B/P (MAP) Pulse Ox O2 Delivery O2 Flow Rate FiO2 03/23/20 12:05 98.5 102 18 165/95 (118) 98 Room Air 98.5 EKG: EKG: [] Radiology/Procedures: Radiology/Procedures: [][facility] [address] [place] [address] IMAGING REPORT Signed PATIENT: DANE KEMP ACCOUNT: [id number] : 06/30/1955 LOCATION: ER AGE: 64 SEX: M EXAM STATUS: REG ER ORD. PHYSICIAN: NIELS DEE DO REASON: FELL THIS MORNING, HIT FOREHEAD ON DOOR KNOB, HEADACHE, NECK PAIN PROCEDURE: CT HEAD AND CERVICAL SPINE WO Exam performed: CT scan of the head and cervical spine without contrast. Date of Service: 03/23/2020 Comparison:None available Clinical History: Patient fell this morning and hit forehead on the door knob, complaining of headache and neck pain Technique: Helical acquisitions are obtained from the foramen magnum to the vertex without intravenous administration of contrast. In addition helical acquisitions are obtained through the cervical spine. Sagittal and coronal reformatted images are obtained and reviewed. CT scan head findings: The ventricular system is midline without evidence of dilatation. Normal clark- white differentiation is maintained. Mild generalized areas of low-attenuation are seen, predominantly in the right parieto-occipital region. There is no extra axial fluid collection, intraparenchymal hemorrhage or mass lesion. The visualized orbits, paranasal sinuses and the mastoid air cells are clear. The calvarium is intact. Impression: 1. No acute intracranial process detected. 2. Areas of low-attenuation in both periventricular deep white matter predominantly in the right parieto-occipital region may represent small vessel ischemic changes. If indicated evaluation with MRI of the brain may be obtained to rule out possibility of a cerebrovascular accident. End Impression. CT cervical spine findings: There is minimal grade 1 retrolisthesis of C3 over C4 and grade 1 anterolisthesis of C4 over C5, the remainder sagittal alignment is preserved. Cranio cervical and C1-2 articulation is preserved. The vertebral body heights are maintained. There is narrowing of C3/4, C5/6 and C6/7 disc spaces, the remainder intravertebral disc spaces are maintained. Multilevel bilateral apophyseal joint hypertrophic changes are seen. There are no fractures. No prevertebral soft tissue swelling is identified. No definite lymphadenopathy or masses are seen within the neck. The visualized thyroid and salivary glands ap pears preserved. Impression: 1. Spondylotic changes and mild disc degenerative changes are noted. 2. No acute abnormality seen in the CT scan cervical spine. PQRS Compliance Statement: One or more of the following individualized dose reduction techniques were utilized for this examination: 1. Automated exposure control 2. Adjustment of the mA and/or kV according to patient size 3. Use of iterative reconstruction technique Electronically signed by: Almita Ortiz MD (03/23/2020 12:46 PM) [facility] DICTATED and SIGNED BY: ALMITA ORTIZ MD DATE: 03/23/20 [id number] 0 Course & Med Decision Making: Course & Med Decision Making Pertinent Labs and Imaging studies reviewed. (See chart for details) Patient is a 35-year-old male who presented to ER due to headaches and vomiting. He is suspected COVID-19 infection. Patient was in stable condition in ER, no fever, vital signs stable. Patient will be discharged home, Leidy Disclaimer: Dragjack Disclaimer: This electronic medical record was generated, in whole or in part, using a voice recognition dictation system. Departure Departure Impression: Primary Impression: Person under investigation for COVID-19 Disposition: 01 DC HOME SELF CARE/HOMELESS Condition: STABLE Referrals: Marly DEVINE MD (PCP) follow up with your doctor as needed Patient Instructions: Viral Syndrome Additional Instructions: You have been tested for or diagnosed with COVID-19. It is an infection caused by a new type of coronavirus. COVID-19 will cause cold-like or mild flu symptoms in most. It can cause more severe symptoms like problems breathing in some. There is no treatment for COVID-19. The body will clear the infection over time. Self-care will help to ease discomfort. Steps to Take: Self-Care Rest as needed. Healthy habits may help you feel better. Steps include: Choose healthy foods including fruits and vegetables. Drink water throughout the day. Get plenty of sleep each night. If you smoke, try to quit. It may ease breathing. Avoid alcohol. Keep Others Healthy The virus can spread to others. Droplets are released every time you sneeze or cough. The droplets can get into the mouth, nose, or eyes of people near you and lead to infection. To lower the chances of spreading COVID-19 to others: Stay at home until your doctor has said it is safe to leave. If you tested positive this will mean staying isolated until both of the following are true: At least 7 days have passed since the start of illness. You are free of fever for at least 72 hours without the use of medicine. During this time: - Avoid public areas, events, or transportation. Do not return to work or school until your doctor has said it is safe to do so. - Call ahead if you need to go to a medical center. Let them know you may have COVID-19. It will help them guide you where to go. They may also ask you to wear a facemask when you come to the office. - If you call for emergency medical services, let them know you may have COVID- 19. While at home: - Try to avoid close contact with others. Stay about 6 feet away. - If possible, spend most of your time in a separate room from others. - Use a face mask if you will be in close contact with others such as sharing a room or vehicle. - Have someone wipe down common surfaces in the home. Use household precision mechanical instrument maker every day on areas like doorknobs, counters, or sinks. - Cough or sneeze into a tissue. Throw the tissue away right after use. If a tissue is not available, cough or sneeze into your elbow. - Wash your hands often. Wash them after sneezing or coughing. Use soap and water and wash for at least 20 seconds. Alcohol based hand machinery cleaner can be used if soap and water is not available. - Do not prepare food for others. Avoid sharing personal items like forks, spoons, or toothbrushes. - Avoid close contact with pets while you are sick. There is no evidence of the virus passing to pets. This is a safety step until more is known about this virus. Isolation can be frustrating. Social interaction can help. Keep in touch with friends and family through phone and tech options. You can still interact with others in your home, just keep a safe distance of about 6 feet. Follow-up: Your doctors office will check in with you to see if there are any changes in your health. You may be asked to keep track of symptoms to share with them. They will also let you know when you are clear to be in public again. Problems to Look Out For: Contact your doctor if your recovery is not going as you expect. Get emergency care if you have problems such as: - Trouble breathing - Nonstop chest pain or pressure - Changes in awareness, confusion, or problems waking - Lips or face have bluish color - Worsening of symptoms If you think you have an emergency, call for emergency medical services right a way. As taken from [facility] NIELS Perez DO Mar 23, 2020 13:40
[2020-03-23] MEDS ORDERED: ACETAMINOPHEN 500 MG TABLET PO ONE (14:00)
--- NOTE | 2020-03-25 10:35 | NUR ---
IP: Pt returned call and I informed him of the negative COVID test. Pt verbalized understanding.
== END 2020-03-23 14:11 | disposition home or self-care (01) ==
LOC: ER 11:23
DX: R51.9 Headache, unspecified (principal); Z20.822 Contact with and (suspected) exposure to COVID-19; R11.2 Nausea with vomiting, unspecified; I10 Essential (primary) hypertension; F17.200 Nicotine dependence, unspecified, uncomplicated; Z98.890 Other specified postprocedural states; Z88.2 Allergy status to sulfonamides
CPT/HCPCS: 99283; C9803; U0003

== ENCOUNTER 2020-07-13 16:39 | Emergency (ER) | payer BC ==
[~2020-07-13] VITALS: Ht 182.9 cm; Wt 98.0 kg
[~2020-07-13 16:39] MED LIST changes: +NABU750T11 PO; -NABU750T7 PO
[2020-07-13] MEDS ORDERED: predniSONE 10 MG TABLET PO ONE (18:45)
[2020-07-13] MEDS ORDERED: ALBUTEROL SULFATE 2.5 MG/3 ML NEBU. CONT NEB ONE (18:45)
--- NOTE | 2020-07-13 18:49 | ED.ADGEN ---
Past Medical History Past Medical History: Hypertension Additional Past Medical Histor: CYSTITIS Past Surgical History: No Surgical History, Other Additional Past Surgical Histo: right carpal tunnel Smoking Status: Current Every Day Smoker Alcohol Use: None Drug Use: None General Adult EDM: Chief Complaint: COUGH HPI: HPI: Patient is a 35 year old AA male who presents emergency department with complaints of a productive cough with yellow sputum, expiratory wheezes, nasal congestion, and sinus pressure for the last 6 weeks. Patient reports that he tested negative for COVID-19 5 days ago. He denies 19. He denies any fever, nausea, vomiting, diarrhea, abdominal pain, decreased taste/smell, headache, runny nose, or watery eyes. Patient reports a history of seasonal allergies but has not had problems with them for a few years. Patient states he has not been taking anything for his allergies. He currently denies any pain. Review of Systems: Review of Systems: Complete ROS is negative unless otherwise noted in HPI. Current Medications: Current Medications Medications (Trade) Dose Ordered Sig/Héctor Start Time Stop Time Status Last Admin Dose Admin Albuterol Sulfate (Ventolin Neb Soln) 10 mg 1X ONCE 07/13/20 18:45 07/13/20 18:48 DC Prednisone (Prednisone) 50 mg 1X ONCE 07/13/20 18:45 07/13/20 18:48 DC 07/13/20 19:29 50 MG Allergies: Allergies: Allergies Coded Allergies Type Severity Reaction Last Updated Verified Sulfa (Sulfonamide Antibiotics) Allergy Unknown 03/23/20 Yes Physical Exam: PE: See Above Constitutional: Well developed, well nourished, no acute distress, non-toxic appearance, obese. [] HENT: Normocephalic, atraumatic, bilateral external ears normal, bilateral TMs normal, nose congested with erythema and edema of nasal turbinates bilaterally, cobblestone appearance of posterior pharynx Eyes: PERRLA, EOMI, conjunctiva injected bilaterally, no discharge. [] Neck: Normal range of motion, no stridor. [] Cardiovascular:Heart rate regular rhythm Lungs & Thorax: Respirations even and unlabored, no retractions, no respiratory distress, coarse throughout, diminished bilateral bases Skin: Warm, dry, no erythema, no rash. [] Extremities: No cyanosis, ROM intact, no edema. [] Neurologic: Alert and oriented X 3, no focal deficits noted. [] Psychologic: Affect normal, judgement normal, mood normal. [] Current Patient Data: Vital Signs: Vital Signs Date Time Temp Pulse Resp B/P (MAP) Pulse Ox O2 Delivery O2 Flow Rate FiO2 07/13/20 17:40 98.3 72 18 161/100 (120) 95 Room Air 98.3 EKG: EKG: [] Heart Score: C/O Chest Pain: No Risk Scores: Score 0 - 3: 2.5% MACE over next 6 weeks - Discharge Home Score 4 - 6: 20.3% MACE over next 6 weeks - Admit for Clinical Observation Score 7 - 10: 72.7% MACE over next 6 weeks - Early Invasive Strategies Radiology/Procedures: Radiology/Procedures: PROCEDURE: CHEST AP ONLY XR CHEST 1V 07/13/2020 7:19 PM INDICATION: Cough, wheezing COMPARISON: 04/02/2017 TECHNIQUE: Portable frontal view of the chest is provided. FINDINGS: The cardiomediastinal silhouette is similar in appearance. Lungs are clear. There are no significant pleural effusions. There is no pulmonary vascular congestion. No pneumothorax. No suspicious osseous abnormality. IMPRESSION: There is no acute cardiopulmonary process. Electronically signed by: Ashley Arellano MD (07/13/2020 8:32 PM) [facility][] Course & Med Decision Making: Course & Med Decision Making Pertinent Labs and Imaging studies reviewed. (See chart for details) [] Dragon Disclaimer: Dragon Disclaimer: This electronic medical record was generated, in whole or in part, using a voice recognition dictation system. Departure Departure Impression: Primary Impression: Bronchitis Additional Impression: Allergic rhinitis Disposition: 01 HOME / SELF CARE / HOMELESS Condition: STABLE Referrals: UNKNOWN PCP NAME (PCP) Patient Instructions: Acute Bronchitis, [id number], Allergic Rhinitis Additional Instructions: Fill prescription(s) and use as directed. Recommend that you take 10 mg of generic Zyrtec (cetirizine) or Claritin at bedtime and use over the counter Flonase (fluticasone) nasal spray 2 sprays each nostril once daily in the morning. Alternate Tylenol or ibuprofen as needed for pain/fever. Increase clear fluids. Avoid airway triggers such as smoke, fragrance, dust, and pollen. May take adrh-scl-fnrgmgn cough suppressants as needed. Follow-up with your primary care doctor in 1-2 days, return to the ER if symptoms worsen or fever develops. Scripts Azithromycin (AZITHROMYCIN TABLET) 250 Mg Tablet 1 PKG PO UD for 5 Days, #6 TAB 0 Refills 2 the first day followed by 1 for days 2-5 Prov: ERLINDA VILLARREAL APRN 07/13/20 Prednisone (PREDNISONE) 50 Mg Tablet 1 TAB PO DAILY for 5 Days, #5 TAB 0 Refills Prov: ERLINDA VILLARREAL APRN 07/13/20 Albuterol Sulfate (Proair Hfa) 8.5 Gm Hfa.aer.ad 2 PUFF IH PRN Q4-6HRS PRN for wheezing for 21 Days, #1 INHALER 0 Refills Prov: ERLINDA VILLARREAL APRN 07/13/20 Problem Qualifiers Additional Impression: Allergic rhinitis Allergic rhinitis trigger: unspecified Allergic rhinitis seasonality: unspecified Qualified Codes: J30.9 - Allergic rhinitis, unspecified ERLINDA VILLARREAL APRN July 13, 2020 18:48
[2020-07-13] MEDS ORDERED: AZIT250T6 PO (20:30)
[2020-07-13] MEDS ORDERED: PRED50TA PO (20:30)
[2020-07-13] MEDS ORDERED: ALBU2.5V8 IH (20:30)
--- NOTE | 2020-07-13 20:34 | RAD ---
XR CHEST 1V 07/13/2020 7:19 PM INDICATION: Cough, wheezing COMPARISON: 04/02/2017 TECHNIQUE: Portable frontal view of the chest is provided. FINDINGS: The cardiomediastinal silhouette is similar in appearance. Lungs are clear. There are no significant pleural effusions. There is no pulmonary vascular congestion. No pneumothora x. No suspicious osseous abnormality. IMPRESSION: There is no acute cardiopulmonary process. Electronically signed by: Ashley Arellano MD (07/13/2020 8:32 PM) [facility]
[2020-07-13 20:40] VITALS: BP 164/100
== END 2020-07-13 20:40 | disposition home or self-care (01) ==
LOC: ER 16:39
DX: J40 Bronchitis, not specified as acute or chronic (principal); J30.9 Allergic rhinitis, unspecified; I10 Essential (primary) hypertension; F17.200 Nicotine dependence, unspecified, uncomplicated; Z88.2 Allergy status to sulfonamides
CPT/HCPCS: 71045; 99283; J7512

== ENCOUNTER 2020-12-07 21:40 | Emergency (ER) | payer BC ==
[~2020-12-07] VITALS: Ht 182.9 cm; Wt 176.0 kg
[~2020-12-07 21:40] MED LIST changes: +ALBU2.5V8 IH; +AZIT250T6 PO
[2020-12-07 22:20] VITALS: BP 145/75
--- NOTE | 2020-12-07 22:43 | PHYS DOC ---
Past Medical History Past Medical History: Hypertension Additional Past Medical Histor: CYSTITIS Past Surgical History: No Surgical History, Other Additional Past Surgical Histo: right carpal tunnel Smoking Status: Current Every Day Smoker Alcohol Use: None Drug Use: None General Adult EDM: Chief Complaint: BACK PAIN OR INJURY HPI: HPI: Patient is a 35 year old male with history of hypertension, chronic back pain, who presents to the ED today complaining of 10 out of 10 chronic bilateral low back pain nonradiating in nature, patient states symptoms have been going on for 5 months. He states he got injured at work 5 months ago. He states on Tuesday he received injections to his back. He states the pain did not improve with injections. Patient denies any trauma. Denies any pain radiating to bilateral lower extremities. Denies any loss of bowel/bladder function. He states he missed work today and would like a note for work. Review of Systems: Review of Systems: Constitutional: Denies fever or chills. [] GI: Denies abdominal pain, nausea, vomiting, bloody stools or diarrhea. [] : Denies dysuria. [] Musculoskeletal: Reports low back pain Integument: Denies rash. [] Neurologic: Denies headache, focal weakness or sensory changes. [] Psychiatric: Denies depression or anxiety. [] Heart Score: C/O Chest Pain: N/A Risk Factors: Risk Factors: DM, Current or recent (<one month) smoker, HTN, HLP, family history of CAD, obesity. Risk Scores: Score 0 - 3: 2.5% MACE over next 6 weeks - Discharge Home Score 4 - 6: 20.3% MACE over next 6 weeks - Admit for Clinical Observation Score 7 - 10: 72.7% MACE over next 6 weeks - Early Invasive Strategies Allergies: Allergies: Allergies Coded Allergies Type Severity Reaction Last Updated Verified Sulfa (Sulfonamide Antibiotics) Allergy Unknown 03/23/20 Yes Physical Exam: PE: Constitutional: Well developed, well nourished, no acute distress, non-toxic appearance. [] Skin: Warm, dry, no erythema, no rash. [] Back: Morbidly obese patient. No tenderness, no CVA tenderness. [] Extremities: No tenderness, no cyanosis, no clubbing, ROM intact, no edema. [] Neurologic: Alert and oriented X 3, normal motor function, normal sensory function, no focal deficits noted. [] Psychologic: Affect normal, judgement normal, mood normal. [] EKG: EKG: [] Radiology/Procedures: Radiology/Procedures: [] Course & Med Decision Making: Course & Med Decision Making Pertinent Labs and Imaging studies reviewed. (See chart for details) This is a 35-year-old morbidly obese patient presenting to the ED today with chronic low back pain after injury at work 5 months ago, follows up with [facility] doctor. Has no cauda equina syndrome symptoms. Patient states he received injections to his back on Tuesday which did not help. He missed work today and would like a note for work. Note was provided. Encouraged to follow- up with his own PCP as well as the [facility] doctor that has been following up with him for back pain. You were evaluated in the emergency room for back pain. Please continue following up with your own doctor. Come back to the ED at any point symptoms worsen. Dragon Disclaimer: Dragon Disclaimer: This electronic medical record was generated, in whole or in part, using a voice recognition dictation system. Departure Departure Impression: Primary Impression: Back pain Qualified Codes: M54.50 - Low back pain, unspecified; G89.29 - Other chronic pain Disposition: 01 HOME / SELF CARE / HOMELESS Condition: STABLE Referrals: UNKNOWN PCP NAME (PCP) follow up with your doctor Patient Instructions: Back Pain, Adult, [id number] Additional Instructions: You were seen for back pain. Please follow-up with your primary care doctor as well as [facility] doctor as soon as you can. Scripts Hydrocodone Bit/Acetaminophen (HYDROCODONE-APAP 5-325 ) 1 Tab Tablet 1 TAB PO PRN Q6HRS PRN for PAIN, #14 TAB 0 Refills Prov: VICTOR HUGO BRUNO DRAWER WAXER 12/07/20 VICTOR HUGO BRUNO DRAWER WAXER Dec 07, 2020 22:43
[2020-12-07] MEDS ORDERED: HYDR-2761 PO (22:45)
== END 2020-12-07 23:30 | disposition home or self-care (01) ==
LOC: ER 21:40
DX: M54.59 Other low back pain (principal); G89.29 Other chronic pain; I10 Essential (primary) hypertension; F17.200 Nicotine dependence, unspecified, uncomplicated; E66.01 Morbid (severe) obesity due to excess calories; Z68.43 Body mass index [BMI] 50.0-59.9, adult; Z88.2 Allergy status to sulfonamides
CPT/HCPCS: 99283

== ENCOUNTER 2021-07-09 12:57 | Emergency (ER) | payer BC ==
[~2021-07-09] VITALS: Ht 182.9 cm; Wt 188.0 kg
[~2021-07-09 12:57] MED LIST changes: +HYDR-2761 PO
[2021-07-09 14:19] LABS: BACTERIA,URINE 0 /HPF (0-FEW); WBC,URINE 0 /HPF (0-4)
[2021-07-09 14:20] LABS: BASO % 0 % (0-3); CALCIUM 8.8 mg/dL (8.5-10.1); CREATININE 0.9 mg/dL (0.7-1.3); EOS # 0.1 x10^3/uL (0.0-0.7); EOS % 2 % (0-3); GFR 114.9; HEMATOCRIT 40.4 % (39.0-53.0); HEMOGLOBIN 13.8 g/dL (13.0-17.5); LYMPH # 1.7 x10^3/uL (1.0-4.8); LYMPH % 24 % (24-48); MEAN CORPUSCULAR HEMOGLOBIN 31 pg (25-35); MEAN CORPUSCULAR HGB CONC 34 g/dL (31-37); MEAN CORPUSCULAR VOLUME 92 fL (79-100); MONO # 0.5 x10^3/uL (0.0-1.1); MONO % 8 % (0-9); NEUT # 4.8 x10^3/uL (1.8-7.7); NEUT % 66 % (31-73); PLATELET COUNT 200 x10^3/uL (140-400); POTASSIUM 4.7 mmol/L (3.5-5.1); RED BLOOD COUNT 4.38 x10^6/uL (4.30-5.70); RED CELL DISTRIBUTION WIDTH 12.9 % (11.5-14.5); WHITE BLOOD COUNT 7.2 x10^3/uL (4.0-11.0)
[2021-07-09 14:20] LABS: BARBITURATES NEG (NEG); BENZODIAZEPINES NEG (NEG); CANNABINOIDS NEG (NEG); COCAINE NEG (NEG); METHADONE NEG (NEG); OPIATES POS (NEG); PHENCYCLIDINE NEG (NEG)
--- NOTE | 2021-07-09 14:21 | RAD ---
EXAMINATION: XR CHEST 1V CLINICAL HISTORY: Chest pain. EXAM DATE/TIME: 07/09/2021 2:06 PM COMPARISON: 07/13/2020 FINDINGS: Lines, Tubes, and Devices: None. Cardiomediastinal Silhouette: Stable heart size. Lungs and Pleura: No evidence of focal airspace consolidation, pleural effusion, or pneumothorax. Bones and Soft Tissues: No acute osseous abnormality. IMPRESSION: No evidence of acute cardiopulmonary abnormality or significant interval change. Electronically signed by: Andre Martino DO (07/09/2021 2:18 PM) [facility]
[2021-07-09 14:22] LABS: AMPHETAMINE/METHAMPHETAMINE NEG (NEG)
[2021-07-09 14:24] LABS: ALBUMIN 3.6 g/dL (3.4-5.0); ALBUMIN/GLOBULIN RATIO 1.2 (1.0-1.7); TOTAL BILIRUBIN 0.7 mg/dL (0.2-1.0); TOTAL PROTEIN 6.5 g/dL (6.4-8.2)
[2021-07-09] MEDS ORDERED: ASPIRIN 325 MG TABLET PO ONE (14:30)
[2021-07-09] MEDS ORDERED: NITROGLYCERIN SUBLINGUAL 0.4 MG BOTTLE OF 25. SL PRN (14:30)
[2021-07-09 15:36] VITALS: BP 135/63
--- NOTE | 2021-07-09 15:43 | PHYS DOC ---
Past Medical History Past Medical History: Hypertension Additional Past Medical Histor: CYSTITIS Past Surgical History: Other Additional Past Surgical Histo: right carpal tunnel, BACK INJECTIONS Smoking Status: Current Every Day Smoker Alcohol Use: None Drug Use: None General Adult EDM: Chief Complaint: CHEST PAIN HPI: HPI: Patient is a 36 year old male who presents with chest pressure since last night that he rates a 4 out of 10 its continuous. He is also noticed worsening swelling in his lower extremities. He states he has been taking his losartan and metoprolol daily. He denies shortness of breath, dizziness, fever, cough, abdominal pain, nausea, vomiting or diarrhea, syncope, diaphoresis, headache, vision change, focal weakness, numbness or tingling. Review of Systems: Review of Systems: Constitutional: Denies fever or chills. [] Eyes: Denies change in visual acuity. [] HENT: Denies nasal congestion or sore throat. [] Respiratory: Denies cough or shortness of breath. [] Cardiovascular: Denies chest pain or edema. [] GI: Denies abdominal pain, nausea, vomiting, bloody stools or diarrhea. [] : Denies dysuria. [] Musculoskeletal: Denies back pain or joint pain. [] Integument: Denies rash. [] Neurologic: Denies headache, focal weakness or sensory changes. [] Endocrine: Denies polyuria or polydipsia. [] Lymphatic: Denies swollen glands. [] Psychiatric: Denies depression or anxiety. [] Heart Score: C/O Chest Pain: Yes HEART Score for Chest Pain: HEART Score for Chest Pain Response (Comments) Value History Slighlty/Non-Suspicious 0 ECG Nonspecific Repolarizatio 1 Age < 45 0 Risk Factors >3 Risk Factors or Hx CAD 2 Troponin < Normal Limit 0 Total 3 Risk Factors: Risk Factors: DM, Current or recent (<one month) smoker, HTN, HLP, family history of CAD, obesity. Risk Scores: Score 0 - 3: 2.5% MACE over next 6 weeks - Discharge Home Score 4 - 6: 20.3% MACE over next 6 weeks - Admit for Clinical Observation Score 7 - 10: 72.7% MACE over next 6 weeks - Early Invasive Strategies Current Medications: Current Medications Medications (Trade) Dose Ordered Sig/Héctor Start Time Stop Time Status Last Admin Dose Admin Aspirin (Jason Aspirin) 325 mg 1X ONCE 07/09/21 14:30 07/09/21 14:31 DC 07/09/21 14:30 325 MG Nitroglycerin (Nitrostat) 0.4 mg PRN Q5MIN PRN 07/09/21 14:30 07/09/21 14:46 0.4 MG Allergies: Allergies: Allergies Coded Allergies Type Severity Reaction Last Updated Verified Sulfa (Sulfonamide Antibiotics) Allergy Unknown 03/23/20 Yes amoxicillin Allergy Unknown 12/08/20 Yes Physical Exam: PE: Constitutional: Well developed, well nourished, no acute distress, non-toxic appearance. [] HENT: Normocephalic, atraumatic, bilateral external ears normal, oropharynx moist, no oral exudates, nose normal. [] Eyes: PERRLA, EOMI, conjunctiva normal, no discharge. [] Neck: Normal range of motion, no tenderness, supple, no stridor. [] Cardiovascular:Heart rate regular rhythm, no murmur [] Lungs & Thorax: Bilateral breath sounds clear to auscultation [] Abdomen: Bowel sounds normal, soft, no tenderness, no masses, no pulsatile masses. [] Skin: Warm, dry, no erythema, no rash. [] Back: No tenderness, no CVA tenderness. [] Extremities: No tenderness, no cyanosis, no clubbing, ROM intact, no edema. [] Neurologic: Alert and oriented X 3, normal motor function, normal sensory function, no focal deficits noted. [] Psychologic: Affect normal, judgement normal, mood normal. [] Current Patient Data: Labs: Laboratory Tests Test 07/09/21 13:54 07/09/21 14:00 White Blood Count 7.2 x10^3/uL (4.0-11.0) Red Blood Count 4.38 x10^6/uL (4.30-5.70) Hemoglobin 13.8 g/dL (13.0-17.5) Hematocrit 40.4 % (39.0-53.0) Mean Corpuscular Volume 92 fL (79-100) Mean Corpuscular Hemoglobin 31 pg (25-35) Mean Corpuscular Hemoglobin Concent 34 g/dL (31-37) Red Cell Distribution Width 12.9 % (11.5-14.5) Platelet Count 200 x10^3/uL (140-400) Neutrophils (%) (Auto) 66 % (31-73) Lymphocytes (%) (Auto) 24 % (24-48) Monocytes (%) (Auto) 8 % (0-9) Eosinophils (%) (Auto) 2 % (0-3) Basophils (%) (Auto) 0 % (0-3) Neutrophils # (Auto) 4.8 x10^3/uL (1.8-7.7) Lymphocytes # (Auto) 1.7 x10^3/uL (1.0-4.8) Monocytes # (Auto) 0.5 x10^3/uL (0.0-1.1) Eosinophils # (Auto) 0.1 x10^3/uL (0.0-0.7) Basophils # (Auto) 0.0 x10^3/uL (0.0-0.2) D-Dimer (Dari) < 0.27 ug/mlFEU Sodium Level 143 mmol/L (136-145) Potassium Level 4.7 mmol/L (3.5-5.1) Chloride Level 107 mmol/L (98-107) Carbon Dioxide Level 24 mmol/L (21-32) Anion Gap 12 (6-14) Blood Urea Nitrogen 14 mg/dL (8-26) Creatinine 0.9 mg/dL (0.7-1.3) Estimated GFR (Cockcroft-Gault) 114.9 BUN/Creatinine Ratio 16 (6-20) Glucose Level 92 mg/dL (70-99) Calcium Level 8.8 mg/dL (8.5-10.1) Magnesium Level 2.0 mg/dL (1.8-2.4) Total Bilirubin 0.7 mg/dL (0.2-1.0) Aspartate Amino Transferase (AST) 37 U/L (15-37) Alanine Aminotransferase (ALT) 38 U/L (16-63) Alkaline Phosphatase 80 U/L (46-116) Troponin I High Sensitivity 7 ng/L (4-75) QK-Fqj-Y-Type Natriuretic Peptide 50 pg/mL (0-124) Total Protein 6.5 g/dL (6.4-8.2) Albumin 3.6 g/dL (3.4-5.0) Albumin/Globulin Ratio 1.2 (1.0-1.7) Lipase 56 U/L (73-393) L Urine Collection Type Unknown Urine Color (Auto) Light yellow Urine Turbidity Clear Urine pH (Auto) 5.5 (<5.0-8.0) Urine Specific Turner 1.018 (1.000-1.030) Urine Protein (Auto) Negative mg/dL (Negative) Urine Glucose (Auto)(UA) Negative mg/dL (Negative) Urine Ketones (Auto) Negative mg/dL (Negative) Urine Blood (Auto) Moderate (Negative) Urine Nitrite Negative (Negative) Urine Bilirubin (Auto) Negative (Negative) Urine Urobilinogen (Auto) Normal mg/dL (Normal) Urine Leukocyte Esterase (Auto) Negative (Negative) Urine RBC 1-2 /HPF (0-2) Urine WBC 0 /HPF (0-4) Urine Bacteria 0 /HPF (0-FEW) Urine Mucus Slight /LPF Urine Opiates Screen Pos (NEG) Urine Methadone Screen Neg (NEG) Urine Barbiturates Neg (NEG) Urine Phencyclidine Screen Neg (NEG) Urine Amphetamine/Methamphetamine Neg (NEG) Urine Benzodiazepines Screen Neg (NEG) Urine Cocaine Screen Neg (NEG) Urine Cannabinoids Screen Neg (NEG) Urine Ethyl Alcohol Neg (NEG) Laboratory Tests 07/09/21 13:54 Laboratory Tests 07/09/21 13:54 Vital Signs: Vital Signs Date Time Temp Pulse Resp B/P (MAP) Pulse Ox O2 Delivery O2 Flow Rate FiO2 07/09/21 14:48 68 16 127/85 (99) 98 Room Air 07/09/21 13:20 99.0 99.0 EKG: EK and read by Dr. Man as sinus rhythm but no STEMI. Radiology/Procedures: Radiology/Procedures: [] Impression: [facility] [address] [place], [place] [id number] IMAGING REPORT Signed PATIENT: COLE RAMSAY ACCOUNT: [id number] : 1985 LOCATION: ER AGE: 36 SEX: M EXAM STATUS: PRE ER ORD. PHYSICIAN: SHYAM JACK APRN REASON: chest pain, DRAWING BLOOD IV 1:51PM PROCEDURE: PORTABLE CHEST 1V EXAMINATION: XR CHEST 1V CLINICAL HISTORY: Chest pain. EXAM DATE/TIME: 07/09/2021 2:06 PM COMPARISON: 07/13/2020 FINDINGS: Lines, Tubes, and Devices: None. Cardiomediastinal Silhouette: Stable heart size. Lungs and Pleura: No evidence of focal airspace consolidation, pleural effusion, or pneumothorax. Bones and Soft Tissues: No acute osseous abnormality. IMPRESSION: No evidence of acute cardiopulmonary abnormality or significant interval change. Electronically signed by: Andre Schwartz DO (07/09/2021 2:18 PM) [facility] DICTATED and SIGNED BY: ANDRE SCHWARTZ DO DATE: 07/09/21 1417 Course & Med Decision Making: Course & Med Decision Making Pertinent Labs and Imaging studies reviewed. (See chart for details) See HPI. Alert and oriented x4. Ambulatory steady gait. Speaks in full clear sentences. Bilateral lower extremity 2+ nonpitting. Lungs are clear in upper lobes but diminished in lower lobes. Skin pink warm and dry. EKG showed a sinus rhythm without STEMI. Patient had 1 nitro sublingual and it did bring his chest pain down to a 3 out of 10. Patient then refused anymore because he got headache. This is concerning for angina. States he has not seen a car diologist. Blood work is unremarkable. Finding is normal at this time. Have woken to the patient about his chest pain and how the nitroglycerin helped and so it would be a good idea that the patient be admitted for observation overnight and cardiology come and see the patient. Patient states that he does not want to stay. I told the patient risk of leaving would be heart attack, or disa bility. He states his understanding. He does have a primary care doctor that he can follow-up with. [] Leidy Disclaimer: Leidy Disclaimer: This electronic medical record was generated, in whole or in part, using a voice recognition dictation system. Departure Departure Impression: Primary Impression: Chest pain Qualified Codes: R07.9 - Chest pain, unspecified Disposition: LEFT AGAINST MEDICAL ADVICE Admitting Physician: RAMONA Condition: STABLE Referrals: CHE CHAVES MD (PCP) SHYAM JACK APRN July 09, 2021 15:43
[2021-07-09] MEDS ORDERED: ACETAMINOPHEN 325 MG TABLET. PO ONE (16:00)
[2021-07-10] MEDS ORDERED: LOSA25TA54 PO (05:09)
[2021-07-10] MEDS ORDERED: METO50TA6 PO (05:09)
[2021-07-10] MEDS ORDERED: PANT40TA77 PO (13:56)
--- NOTE | 2021-07-11 06:21 | EKG ---
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
== END 2021-07-09 16:27 | disposition left against medical advice (07) ==
LOC: ER 12:57
DX: R07.89 Other chest pain (principal); I10 Essential (primary) hypertension; F17.200 Nicotine dependence, unspecified, uncomplicated; Z88.1 Allergy status to other antibiotic agents; Z88.2 Allergy status to sulfonamides
CPT/HCPCS: 36415; 71045; 80053; 80307; 81001; 83690; 83735; 83880; 84484; 85025; 85379; 93005; 99285-25

== ENCOUNTER 2021-07-10 00:20 | Observation (INO) | payer BC ==
[~2021-07-10] VITALS: Ht 182.9 cm; Wt 190.6 kg
--- NOTE | 2021-07-10 01:18 | ED.ADGEN ---
Past Medical History Past Medical History: Hypertension Additional Past Medical Histor: CYSTITIS Past Surgical History: Other Additional Past Surgical Histo: right carpal tunnel, BACK INJECTIONS Smoking Status: Current Every Day Smoker Alcohol Use: None Drug Use: None General Adult EDM: Chief Complaint: CHEST PAIN HPI: HPI: Patient is a 36 year old male coming in for chest pain. Patient was evaluated yesterday through the day and was to be admitted for chest pain rule out and cardiology consult. Patient states he did not want to be admitted because he just started a new job. Patient came back because of pain has been getting worse. Patient states he had had episode of some diaphoresis, denies any lightheadedness or nausea. Patient states the pain is aching in his left chest but does not radiate. Review of Systems: Review of Systems: All other systems within normal limits except for as noted in the HPI Allergies: Allergies: Physical Exam: PE: Constitutional: Well developed, well nourished, no acute distress, non-toxic appearance. [] HENT: Normocephalic, atraumatic, bilateral external ears normal, nose normal. [] Eyes: PERRLA, conjunctiva normal, no discharge. [] Neck: No rigidity, supple, no stridor. [] Cardiovascular: Regular rate and rhythm, brisk cap refill [] Lungs & Thorax: Non labored symmetric respirations, no tachypnea or respiratory distress [] Abdomen: Soft, nondistended. Skin: Warm, dry, no erythema, no rash. [] Back: Unremarkable Extremities: No deformities, range of motion grossly intact, no lower extremity edema [] Neurologic: Alert and oriented X 3, no focal deficits noted. [] Psychologic: Affect normal, judgement normal, mood normal. [] Current Patient Data: Vital Signs: EKG: EKG: [] Heart Score: C/O Chest Pain: Yes HEART Score for Chest Pain: HEART Score for Chest Pain Response (Comments) Value History Moderately Suspicious 1 ECG Nonspecific Repolarizatio 1 Age < 45 0 Risk Factors >3 Risk Factors or Hx CAD 2 Troponin < Normal Limit 0 Total 4 Risk Factors: Risk Factors: DM, Current or recent (<one month) smoker, HTN, HLP, family history of CAD, obesity. Risk Scores: Score 0 - 3: 2.5% MACE over next 6 weeks - Discharge Home Score 4 - 6: 20.3% MACE over next 6 weeks - Admit for Clinical Observation Score 7 - 10: 72.7% MACE over next 6 weeks - Early Invasive Strategies Radiology/Procedures: Radiology/Procedures: [] Course & Med Decision Making: Course & Med Decision Making Pertinent Labs and Imaging studies reviewed. (See chart for details) [] Dragon Disclaimer: Dragon Disclaimer: This electronic medical record was generated, in whole or in part, using a voice recognition dictation system. Departure Departure Impression: Primary Impression: Chest pain Disposition: ADMITTED INPATIENT Admitting Physician: RAMONA Condition: STABLE Referrals: CHE CHAVES MD (PCP) ROXANN ALEXANDER MD July 10, 2021 01:18
[2021-07-10] MEDS ORDERED: NITROGLYCERIN SUBLINGUAL 0.4 MG BOTTLE OF 25. SL PRN (01:30)
[2021-07-10] MEDS ORDERED: ONDANSETRON PF 4 MG/2 ML VIAL. IVP PRN (01:30)
[2021-07-10] MEDS ORDERED: ACETAMINOPHEN 325 MG TABLET. PO PRN (01:30)
[2021-07-10 03:00] VITALS: BP 166/87
[2021-07-10] MEDS: MORPHINE SULFATE 4 MG/ML INJ. IVP PRN ×2 (03:26→08:14)
--- NOTE | 2021-07-10 03:27 | NUR ---
Patient verbalized that he only wanted 2mg of morphine to see how he tolerates it. Patient stated he only had oral morphine before.
[2021-07-10] MEDS ORDERED: LOSA25TA54 PO (05:09)
[2021-07-10] MEDS ORDERED: METO50TA6 PO (05:09)
[2021-07-10 07:00] VITALS: BP 153/81
--- NOTE | 2021-07-10 07:15 | PDOC1 ---
History and Physical Date of Admission Date of Admission DATE: 07/10/21 TIME: 07:15 Identification/Chief Complaint Chief Complaint Chest pain Source Source: Patient History of Present Illness History of Present Illness Mr Dudley is a 36 year old male w/ PMHx HTN who returns to ED c/o chest pain. He was seen in the ED 07/10/2023 2 for similar and did not want to get fired from his job but his pain continued to worse and he returned to the ED. His pain is tightness across his chest, described as aching does not radiate and is not reproducible. Patient states he had had episode of some diaphoresis, denies any lighthead edness or nausea. He does endorse lower extremity edema but has no symptoms of orthopnea or dyspnea on exertion. He does note when he lays down at night he has a sour stomach and does wake up and cough in the morning. He smokes between half pack cigarettes a day and a pack cigarettes a day and drinks at least 2 alcoholic beverages a day. He sees Dr. Godinez at [facility] outpatient and was recently started on losartan 2 months ago and Toprol-XL. Previously had a referral to cardiology for concerns on EKG for cardiomegaly had outpatient echocardiogram at that time was previously on lisinopril hydrochlorothiazide but had discontinued it. He had outpatient sleep study within the last 3 years negative for sleep apnea. He works 2 jobs 1 for [employer] 1 for another [employer] company locally. Ovarian cancer in mother and multiple myeloma and father both In ED he was given nitroglycerin which gives him a headache but brought his pain from 7 out of 10 down to 3 out of 10. WBC 7.2, Hb 13.8, platelets 200, D-dimer negative, NA 143, K4.7, BUN 14, CR 0.9, glucose 92, magnesium 2. 0.7 AST 37 ALT 38, alkaline phosphatase 80, high- sensitivity troponin was 8 albumin 3.6, lipase 36. Drug screen positive for opiates. EKG sinus rate 76 bpm left axis deviation no T WI no ST segment elevations normal intervals. Chest radiograph 07/10/2019 reviewed no acute findings. Past Medical History Cardiovascular: HTN Past Surgical History Past Surgical History Carpal tunnel right hand Family History Family History Ovarian cancer in mother and multiple myeloma and father both Family History: Cancer (Ovarian cancer in mother and multiple myeloma and father both ), Hypertension (Mother) Social History Smoke: 1 pack per day ALCOHOL: heavy Drugs: None Current Medications Current Medications Current Medications Ondansetron HCl (Zofran) 4 mg PRN Q8HRS PRN IVP NAUSEA/VOMITING; Start 07/10/21 at 01:30; Stop 07/11/21 at 01:29 Morphine Sulfate (Morphine Sulfate) 4 mg PRN Q2HR PRN IVP PAIN Last administered on 07/10/21at 03:26; Start 07/10/21 at 01:30; Stop 07/11/21 at 01:29 Acetaminophen (Tylenol) 650 mg PRN Q4HRS PRN PO FEVER > 100.3'F; Start 07/10/21 at 01:30; Stop 07/11/21 at 01:29 Nitroglycerin (Nitrostat) 0.4 mg PRN Q5MIN PRN SL CHEST PAIN; Start 07/10/21 at 01:30; Stop 07/11/21 at 01:29 Active Scripts Active Reported Losartan Potassium (Losartan Potassium) 25 Mg Tablet 25 Mg PO DAILY Metoprolol Tartrate 50 Mg Tablet 1 Tab PO DAILY Allergies Allergies: Coded Allergies: Sulfa (Sulfonamide Antibiotics) (Verified Allergy, Unknown, 07/10/21) "red dots in my mouth" amoxicillin (Verified Allergy, Unknown, 07/10/21) ROS General: YES: Appetite; No: Chills, Night Sweats, Fatigue, Malaise, Other PSYCHOLOGICAL ROS: No: Anxiety, Behavioral Disorder, Concentration difficultie, Decreased libido, Depression, Disorientation, Hallucinations, Hostility, Irritablity, Memory difficulties, Mood Swings, Obsessive thoughts, Physical abuse, Sexual abuse, Sleep disturbances, Suicidal ideation, Other Eyes: No Blurry vision, No Decreased vision, No Double vision, No Dry eyes, No Excessive tearing, No Eye Pain, No Itchy Eyes, No Loss of vision, No Photophobia, No Scotomata, No Uses contacts, No Uses glasses, No Other HEENT: No: Heacaches, Visual Changes, Hearing change, Nasal congestion, Nasal discharge, Oral lesions, Sinus pain, Sore Throat, Epistaxis, Sneezing, Snoring, Tinnitus, Vertigo, Vocal changes, Other ALLERGY AND IMMUNOLOGY: No: Hives, Insect Bite Sensitivity, Itchy/Watery Eyes, Nasal Congestion, Post Nasal Drip, Seasonal Allergies, Other Hematological and Lymphatic: No: Bleeding Problems, Blood Clots, Blood Transfusions, Brusing, Night Sweats, Pallor, Swollen Lymph Nodes, Other ENDOCRINE: No: Breast Changes, Galactorrhea, Hair Pattern Changes, Hot Flashes, Malaise/lethargy, Mood Swings, Palpitations, Polydipsia/polyuria, Skin Changes, Temperature Intolerance, Unexpected Weight Changes, Other Breast: No New/Changing Breast Lumps, No Nipple changes, No Nipple discharge, No Other Respiratory: YES: Cough; No: Hemoptysis, Orthopnea, Pleuritic Pain, Shortness of breath, SOB with excertion, Sputum Changes, Stridor, Tachypnea, Wheezing, Other Cardiovascular: yes Chest Pain, yes Edema; No Palpitations, No Orthopnea, No Paroxysmal Noc. Dyspnea, No Lt Headedness, No Other Gastrointestinal: No Nausea, No Vomiting, No Abdominal Pain, No Diarrhea, No Constipation, No Melena, No Hematochezia, No Other Genitourinary: No Dysuria, No Frequency, No Incontinence, No Hematuria, No Retention, No Discharge, No Urgency, No Pain, No Flank Pain, No Other, No , No , No , No , No , No , No Musculoskeletal: No Gait Disturbance, No Joint Pain, No Joint Stiffness, No Joint Swelling, No Muscle Pain, No Muscular Weakness, No Pain In:, No Swelling In:, No Other Neurological: No Behavorial Changes, No Bowel/Bladder ControlChng, No Confusion, No Dizziness, No Gait Disturbance, No Headaches, No Impaired Coord/balance, No Memory Loss, No Numbness/Tingling, No Seizures, No Speech Problems, No Tremors, No Visual Changes, No Weakness, No Other Skin: No Dry Skin, No Eczema, No Hair Changes, No Lumps, No Mole Changes, No Mottling, No Nail Changes, No Pruritus, No Rash, No Skin Lesion Changes, No Other, No Acne Vitals Vitals Vital Signs Date Time Temp Pulse Resp B/P (MAP) Pulse Ox O2 Delivery O2 Flow Rate FiO2 07/10/21 03:56 Room Air 07/10/21 03:26 18 99 07/10/21 03:00 98.5 69 166/87 (113) 98.5 Labs Labs Laboratory Tests Test 07/10/21 01:42 Troponin I High Sensitivity 7 ng/L (4-75) Laboratory Tests Test 07/10/21 01:42 Troponin I High Sensitivity 7 ng/L (4-75) VTE Prophylaxis Ordered VTE Prophylaxis Devices: Yes VTE Pharmacological Prophylaxi: No Assessment/Plan Assessment/Plan Chest pain -acute NV ruled out based on EKG and serial troponins. Did improve with nitroglycerin though this could have been treating esophageal spasm. Will treat as GERD with PPI. Cardiology consulted. No telemetry events HTN - cont losartan, toprol XL. May be better served on amlodipine rather than Toprol-XL he will discuss with his primary care physician outpatient as he just started these medications Lower extremity edema -NT proBNP of 50 mils out CHF my opinion. Morbid obesity -counseled on weight loss lifestyle modification. Smoker -counseled on cessation. Offered nicotine replacement Alcohol misuse -counseled on cutting back he treated with the recommended guidelines. FEN - Cardiac diet PPX - ambulatory FULL CODE Dispo - observation for chest pain Justifications for Admission Other Justification SOWMYA MCINTOSH MD July 10, 2021 07:15
[2021-07-10] MEDS ORDERED: PANTOPRAZOLE 40 MG TABLET.DR. PO SCH (09:00)
[2021-07-10] MEDS ORDERED: METOPROLOL SUCC 24HR ER 25 MG TAB.ER.24H. PO SCH (09:00)
[2021-07-10] MEDS ORDERED: LOSARTAN POTASSIUM 25 MG TABLET. PO SCH (09:00)
[2021-07-10 10:48] VITALS: BP 131/60
--- NOTE | 2021-07-10 11:48 | NUR ---
SS following for discharge planning. SS reviewed pt chart and discussed with pt RN. Pt is from home with spouse and is currently on room air. Cardiology following. SS will continue to follow for discharge planning.
--- NOTE | 2021-07-10 11:56 | PDOC2 ---
TONEY FARLEY ORAL HEALTH THERAPIST 07/10/21 1156: CARDIAC CONSULT DATE OF CONSULT Date of Consult DATE: 07/10/21 TIME: 11:23 REASON FOR CONSULT Reason for Consult: Chest pain REFERRING PHYSICIAN Referring Physician: Raina SOURCE Source: Chart review, Patient HISTORY OF PRESENT ILLNESS HISTORY OF PRESENT ILLNESS This is a 36 yo male admitted for complains of chest pain. This is nonradiating aching discomfort mainly left chest and nonradiating and this is reproducible with palpation particularly with left arm hyperextension. No nausea or vomiting and no palpitations. 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 No dizzyspells. He does clear his throat a lot at night. No fever or chills. No falls or recent injury or MVA. PAST MEDICAL HISTORY Cardiovascular: HTN CENTRAL NERVOUS SYSTEM: Carpal Tunnel Syndrome Renal/: UTI PAST SURGICAL HISTORY Past Surgical History: Other (right carpal tunnel repair) FAMILY HISTORY Family History: Hypertension SOCIAL HISTORY Smoke: 1 pack per day ALCOHOL: occassional Drugs: Marijuana Lives: Alone CURRENT MEDICATIONS CURRENT MEDICATIONS Current Medications Medications (Trade) Dose Ordered Sig/Héctor Route PRN Reason Start Time Stop Time Status Last Admin Dose Admin Morphine Sulfate (Morphine Sulfate) 4 mg PRN Q2HR PRN IVP PAIN 07/10/21 01:30 07/11/21 01:29 07/10/21 08:14 Nitroglycerin (Nitrostat) 0.4 mg PRN Q5MIN PRN SL CHEST PAIN 07/10/21 01:30 07/11/21 01:29 07/10/21 09:50 Pantoprazole Sodium (Protonix) 40 mg DAILYAC PO 07/10/21 09:00 07/10/21 09:44 Losartan Potassium (Cozaar) 25 mg DAILY PO 07/10/21 09:00 07/10/21 09:44 Metoprolol Succinate (Toprol Xl) 25 mg DAILY PO 07/10/21 09:00 07/10/21 09:45 ALLERGIES ALLERGIES: Coded Allergies: Sulfa (Sulfonamide Antibiotics) (Verified Allergy, Unknown, 07/10/21) "red dots in my mouth" amoxicillin (Verified Allergy, Unknown, 07/10/21) ROS Review of System 14 point ROS evaluated with pertinent positives noted per HPI PHYSICAL EXAM General: Alert, Oriented X3, Cooperative, No acute distress HEENT: Atraumatic, Mucous membr. moist/pink Lungs: Clear to auscultation, Normal air movement Heart: Regular rate (SR), Normal S1, Normal S2, No murmurs Abdomen: Soft, No tenderness Extremities: No cyanosis, No edema Skin: No breakdown, No significant lesion Neuro: Normal speech, Sensation intact Psych/Mental Status: Mental status NL, Mood NL VITALS/I&O VITALS/I&O: Vital Signs Date Time Temp Pulse Resp B/P (MAP) Pulse Ox O2 Delivery O2 Flow Rate FiO2 07/10/21 10:48 97.4 58 18 131/60 (83) 96 Room Air 97.4 I & O 0 07/09/21 07/09/21 07/10/21 15:00 23:00 07:00 Output Total 325 ml Balance -325 ml LABS Lab: Laboratory Tests Test 07/10/21 01:42 07/10/21 06:40 Troponin I High Sensitivity 7 ng/L (4-75) 8 ng/L (4-75) ECHOCARDIOGRAM ECHOCARDIOGRAM <Conclusion> There is mild concentric left ventricular hypertrophy. Left ventricle systolic function is normal. The Ejection Fraction is 55-60%. There is normal LV segmental wall motion. No significant valvular disease. DATE: 02/11/17 1321 ASSESSMENT/PLAN ASSESSMENT/PLAN 1. Atypical chest pain: EKG SR unchanged by comparison. trops nml. Suspect MSK, reproducible 2. HTN: controlled 3. Morbid obesity 4. Tobacco abuse Recommendations 1. Check TSH and FLP 2. Continue home BP regimen. 3. Wt loss, smoking cessation 4. Discuss CAD pathophysiology EITAN SHEA MD 07/10/21 1348: CARDIAC CONSULT ASSESSMENT/PLAN ASSESSMENT/PLAN Patient seen and examined. Agree with [employer]'s assessment and plan. Chest pain with atypical features, reproducible to palpation and most probably musculoskeletal. Myocardial infarction has been ruled out. No further cardiac work-up is indicated at this time Antibiotic consultation TONEY FARLEY APRN July 10, 2021 11:56 EITAN SHEA MD July 10, 2021 13:48
[2021-07-10] MEDS ORDERED: PANT40TA77 PO (13:56)
--- NOTE | 2021-07-10 13:59 | PDOC3 ---
Discharge Summary Visit Information Date of Admission: July 10, 2021 Date of Discharge: July 10, 2021 Admitting Diagnosis: Chest pain Final Diagnosis GERD/LPRD Brief Hospital Course Allergies Allergies Coded Allergies Type Severity Reaction Last Updated Verified Sulfa (Sulfonamide Antibiotics) Allergy Unknown 07/10/21 Yes amoxicillin Allergy Unknown 07/10/21 Yes Vital Signs Vital Signs Date Time Temp Pulse Resp B/P (MAP) Pulse Ox O2 Delivery O2 Flow Rate FiO2 07/10/21 10:48 97.4 58 18 131/60 (83) 96 Room Air 97.4 Lab Results Laboratory Tests Test 07/10/21 01:42 07/10/21 06:40 07/10/21 10:48 Troponin I High Sensitivity 7 ng/L (4-75) 8 ng/L (4-75) 7 ng/L (4-75) Triglycerides Level 166 mg/dL (0-150) Cholesterol Level 199 mg/dL (0-200) LDL Cholesterol, Calculated 133 mg/dL (0-100) VLDL Cholesterol, Calculated 33 mg/dL (0-40) Non-HDL Cholesterol Calculated 166 mg/dL (0-129) HDL Cholesterol 33 mg/dL (40-60) Cholesterol/HDL Ratio 6.0 Thyroid Stimulating Hormone (TSH) 0.715 uIU/mL (0.358-3.74) Laboratory Tests Test 07/10/21 01:42 07/10/21 06:40 07/10/21 10:48 Troponin I High Sensitivity 7 ng/L (4-75) 8 ng/L (4-75) 7 ng/L (4-75) Triglycerides Level 166 mg/dL (0-150) Cholesterol Level 199 mg/dL (0-200) LDL Cholesterol, Calculated 133 mg/dL (0-100) VLDL Cholesterol, Calculated 33 mg/dL (0-40) Non-HDL Cholesterol Calculated 166 mg/dL (0-129) HDL Cholesterol 33 mg/dL (40-60) Cholesterol/HDL Ratio 6.0 Thyroid Stimulating Hormone (TSH) 0.715 uIU/mL (0.358-3.74) Brief Hospital Course Mr Dudley is a 36 year old male w/ PMHx HTN who returns to ED c/o chest pain. He was seen in the ED 07/10/2023 2 for similar and did not want to get fired from his job but his pain continued to worse and he returned to the ED. His pain is tightness across his chest, described as aching does not radiate and is not reproducible. Patient states he had had episode of some diaphoresis, denies any lightheadedness or nausea. He does endorse lower extremity edema but has no symptoms of orthopnea or dyspnea on exertion. He does note when he lays down at night he has a sour stomach and does wake up and cough in the morning. He smokes between half pack cigarettes a day and a pack cigarettes a day and drinks at least 2 alcoholic beverages a day. He sees Dr. Godinez at [facility] outpatient and was recently started on losartan 2 months ago and Toprol-XL. Previously had a referral to cardiology for concerns on EKG for cardiomegaly had outpatient echocardiogram at that time was previously on lisinopril hydrochlorothiazide but had discontinued it. He had outpatient sleep study within the last 3 years negative for sleep apnea. He works 2 jobs 1 for [employer] 1 for another [employer] company locally. Ovarian cancer in mother and multiple myeloma and father both In ED he was given nitroglycerin which gives him a headache but brought his pain from 7 out of 10 down to 3 out of 10. WBC 7.2, Hb 13.8, platelets 200, D-dimer negative, NA 143, K4.7, BUN 14, CR 0.9, glucose 92, magnesium 2. 0.7 AST 37 ALT 38, alkaline phosphatase 80, high-sensitivity troponin was 8 albumin 3.6, lipase 36. Drug screen positive for opiates. EKG sinus rate 76 bpm left axis deviation no T WI no ST segment elevations normal intervals. Chest radiograph 07/10/2019 reviewed no acute findings. No telemetry findings throughout the day given Protonix with little relief. Cardiology evaluated as well and she feels it may be a musculoskeletal component given his new job at [email or web address]. Patient wants to return to work. Advised he can take ibuprofen interspersed with acetaminophen as long as he is taking his Protonix and would not be able to work if he is on opioid pain medications he is amenable to this. Instructed if he feels he needs to continue a PPI beyond 1 month follow-up with a manager intel given contact info for this Consults: Cardiology Problem list: Chest pain -acute PR ruled out based on EKG and serial troponins. Did improve with nitroglycerin though this could have been treating esophageal spasm. Will treat as GERD with PPI. Cardiology consulted. No telemetry events HTN - cont losartan, toprol XL. May be better served on amlodipine rather than Toprol-XL he will discuss with his primary care physician outpatient as he just started these medications Lower extremity edema -NT proBNP of 50 mils out CHF my opinion. Morbid obesity -counseled on weight loss lifestyle modification. Smoker -counseled on cessation. Offered nicotine replacement Alcohol misuse -counseled on cutting back he treated with the recommended guidelines. Greater than 30 minutes spent on d/c home with self care Discharge Information Condition at Discharge: Improved Follow Up: Weeks (1) Disposition/Orders: D/C to Home Scheduled Losartan Potassium (Losartan Potassium ) 25 Mg Tablet, 25 MG PO DAILY for HYPERTENSION, (Reported) Entered as Reported by: Teresa Castano on 07/10/21 050 Last Taken: Unknown Dose on 07/08/21 Last Action: Continued on 07/10/21 0844 by SOWMYA MCINTOSH MD Metoprolol Tartrate (Metoprolol Tartrate) 50 Mg Tablet, 1 TAB PO DAILY for , #60 Ref 5 (Reported) Entered as Reported by: Teresa Castano on 07/10/21 0509 Last Taken: Unknown Dose on 07/08/21 Last Action: Reviewed on 07/10/21 0510 by Teresa Castano Pantoprazole Sodium (Pantoprazole Sodium ) 40 Mg Tablet.dr, 40 MG PO BIDAC for GERD/LPRD for 30 Days, #60 Ref 2 Prescribed by: SOWMYA MCINTOSH MD on 07/10/21 1356 Justicifation of Admission Dx: Justifications for Admission: Justification of Admission Dx: Yes SOWMYA MCINTOSH MD July 10, 2021 13:59
--- NOTE | 2021-07-10 14:21 | NUR ---
pt discharged and IV removed. DC instructions were went over with pt and pt was walked downstairs with tech
--- NOTE | 2021-07-11 06:08 | EKG ---
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
== END 2021-07-10 14:25 | disposition home or self-care (01) ==
LOC: ER 00:20 → INTOOBSV 01:15 → 6 SOUTH 01:15
PROVIDERS: ADMIT Internal Medicine; ATTEND Internal Medicine
DX: R07.89 Other chest pain (principal); I10 Essential (primary) hypertension; K21.9 Gastro-esophageal reflux disease without esophagitis; E66.01 Morbid (severe) obesity due to excess calories; C90.00 Multiple myeloma not having achieved remission; F17.210 Nicotine dependence, cigarettes, uncomplicated; R60.0 Localized edema; Z79.899 Other long term (current) drug therapy; Z98.890 Other specified postprocedural states; Z68.43 Body mass index [BMI] 50.0-59.9, adult; X50.0XXA Overexertion from strenuous movement or load, initial encounter; Y92.89 Other specified places as the place of occurrence of the external cause; Y93.89 Activity, other specified; Y99.8 Other external cause status
CPT/HCPCS: 36415; 80061; 84443; 84484; 93005; 96374; 96376; 99284; G0378; J2270; G0379; 99285-25